=== PATIENT | male | born 1945 | race Caucasian/White ===

== ENCOUNTER 2022-01-09 08:01 | Inpatient (IN) | payer OTHER, MEDICAID ==
[~2022-01-09] VITALS: Ht 170.2 cm; Wt 135.6 kg
--- NOTE | 2022-01-09 | NUR ---
OPENING NOTE PT ADMIT FROM ED. DX S/P EPILEPTICUS. PT AOX0, UNRESPONSIVE. PT IS CHRONIC TRACH WITH T-PIECE ON 5 L OF 02. PT HAS L HAND 24 G WITH IVF INFUSING. PT HAS G TUBE WITH FEEDING CURRENTLY ON HOLD PER MD. PT HAS F/C DRAINING TO GRAVITY WITH 200ML OF DARK VAHID COLOR URINE. PT SKIN INTACT AND COCCYX PAD PLACED FOR PROPHYLACTICALLY. ALL SAFETY MEASURE IN PLACE WILL CONTINUE TO MONITOR
[2022-01-09 08:01] VITALS: BP_SYST 126
--- NOTE | 2022-01-09 08:05 | NUR ---
Patient to ER bed 6 to gown for evaluation. Side rails up. Report given to ELSA BAILEY.
--- NOTE | 2022-01-09 08:06 | NUR ---
Assumed care of pt who was brought from [facility] because of seizure lasting more than 20 minutes. Patient has hx of seizure activity, hyperlipidemia, hypothyroidism, Mxdema crisis. Patient is non responsive and appears to be sleeping. Patient's baseline is nonverbal nonambulatory. Decub ulcer noted over sacrum. Will continue to provide care as ordered.
--- NOTE | 2022-01-09 08:07 | NUR ---
ER Dr. Gonzalez at bedside examining patient.
[2022-01-09] MEDS ORDERED: levETIRAcetam 500 MG in NS 100 ML IV ONE (08:15)
[2022-01-09 08:35] LABS: BASOPHILS # (AUTO) 0.1 K/uL (0.0-0.2); BASOPHILS % (AUTO) 0.8 % (0.0-2.0); EOSINOPHILS # (AUTO) 0.6 K/uL (0.0-0.4); EOSINOPHILS % (AUTO) 6.9 % (0.0-4.0); HEMATOCRIT 29.8 % (36-54); HEMOGLOBIN 9.8 g/dL (14.0-18.0); LYMPHOCYTES # (AUTO) 1.2 K/uL (1.0-5.5); LYMPHOCYTES % (AUTO) 14.2 % (20.5-51.5); MEAN CORPUSCULAR HEMOGLOBIN 33 pg (27-31); MEAN CORPUSCULAR HGB CONC 33 % (32-36); MEAN CORPUSCULAR VOLUME 101 fL (79.0-98.0); MONOCYTES # (AUTO) 0.4 K/uL (0.0-1.0); MONOCYTES % (AUTO) 4.9 % (1.7-9.3); NEUTROPHILS # (AUTO) 6.2 K/uL (1.8-7.7); NEUTROPHILS % (AUTO) 73.2 % (40.0-70.0); PLATELET COUNT (AUTO) 284 K/uL (130-430); RED BLOOD CELL COUNT(AUTO) 2.96 MIL/uL (4.2-6.2); RED CELL DISTRIBUTION WIDTH 18.4 % (9.0-15.0); WHITE BLOOD COUNT (AUTO) 8.5 K/uL (4.8-10.8)
[2022-01-09 08:48] LABS: ANION GAP -1 (5-15); CHLORIDE 101 mmol/L (98-107); CREATININE 0.62 mg/dL (0.55-1.30); GLUCOSE 94 mg/dL (70-99); POTASSIUM 5.6 mmol/L (3.5-5.1); SODIUM SERUM 137 mmol/L (136-145); UREA NITROGEN, BLOOD 46 mg/dL (8-21)
--- NOTE | 2022-01-09 08:48 | NUR ---
Patient transported to radiology via GURNEY, accompanied by RN AND RAD STAFF.
[2022-01-09 08:51] LABS: INR 0.9 (0.80-1.20); PROTHROMBIN TIME 9.3 SECS (9.5-12.5)
--- NOTE | 2022-01-09 08:53 | NUR ---
Returned from radiology, back to [facility].
[2022-01-09 09:03] LABS: ALANINE AMINOTRANSFERASE 31 U/L (12-78); ALBUMIN 2.5 g/dL (3.4-4.8); ASPARTATE AMINOTRANSFERASE 51 U/L (10-37); TOTAL BILIRUBIN 0.2 mg/dL (0.0-1.0)
--- NOTE | 2022-01-09 10:20 | NUR ---
EKG performed at by Dariela BAILEY. Physician given copy of EKG for review.
--- NOTE | 2022-01-09 11:41 | NUR ---
Admit bed requested Patient will be admitted to care of Dr. ACEVEDO. Admitted to ICU unit. Diagnosis STATUS EPILEPTICUS Inpatient (Yes or No) Y Observation (Yes or No) N Orientation concerns or request close to nursing station (Yes or No) N Covid Status N On vent or bipap Y Isolation requirements N Needs a sitter N From Home (Yes or if No enter name of facility) N ([facility]) Requires Dialysis (Yes or No) N Med Rec Completed (Yes of No) Y
[2022-01-09] MEDS ORDERED: KCL 20 mEq in D5NS 1000 mL 1,000 ML IV ONE (11:45)
[2022-01-09 11:46] LABS: BILIRUBIN,URINE NEGATIVE (NEGATIVE); BLOOD, URINE 3+ (NEGATIVE); COLOR,URINE YELLOW (YELLOW); GLUCOSE,URINE NEGATIVE (NEGATIVE); KETONES,URINE NEGATIVE (NEGATIVE); LEUKOCYTE ESTERASE ,URINE 2+ (NEGATIVE); NITRITE, URINE POSITIVE (NEGATIVE); PH,URINE 5.5 (5.0-8.0); PROTEIN URINE 1+ (NEGATIVE); UROBILINOGEN,URINE 0.2 (0.2-1.0)
[2022-01-09] MEDS ORDERED: ARGI1POW13 GT (11:55)
[2022-01-09] MEDS ORDERED: ASCO500L4 GT (11:55)
[2022-01-09] MEDS ORDERED: ACET-2051 GT (11:55)
[2022-01-09] MEDS ORDERED: AMLO5TAB92 GT (11:55)
[2022-01-09 11:59] LABS: CLARITY/URINE HAZY (CLEAR)
[2022-01-09 12:00] LABS: BACTERIA,URINE MODERATE /HPF (None Seen); MUCUS,URINE 1+ /LPF (None Seen); RBC,URINE 20-50 /HPF (0-3)
[2022-01-09] MEDS ORDERED: LEVE100S GT (12:22)
[2022-01-09] MEDS ORDERED: CAT.1 GT (12:22)
[2022-01-09] MEDS ORDERED: BISA10SU61 PR (12:22)
[2022-01-09] MEDS ORDERED: ASPI-524 GT (12:22)
[2022-01-09] MEDS ORDERED: LACT10SO7 GT (12:22)
[2022-01-09] MEDS ORDERED: VALP250S3 GT (12:22)
[2022-01-09] MEDS ORDERED: ATOR40TA68 GT (12:22)
[2022-01-09] MEDS ORDERED: LEVO150C4 GT (12:22)
[2022-01-09] MEDS ORDERED: KETO60CR2 TP (12:22)
[2022-01-09] MEDS ORDERED: MODA100T53 GT (12:22)
[2022-01-09] MEDS ORDERED: IPRA3AMP9 ×2 (12:22)
[2022-01-09] MEDS ORDERED: AMIN30LI2 GT (12:22)
[2022-01-09] MEDS ORDERED: HEPA500015 SQ (12:22)
[2022-01-09] MEDS ORDERED: MULT-74 GT (12:22)
[2022-01-09] MEDS ORDERED: MOM GT (12:22)
[2022-01-09] MEDS ORDERED: LACO200T4 GT (12:22)
[2022-01-09] MEDS ORDERED: LANS30CA53 GT (12:22)
--- NOTE | 2022-01-09 12:23 | NUR ---
Medication reconciliation completed with information provided by FACILITY. Any prior medication reconciliation on file was reviewed and corrected.
[2022-01-09] MEDS ORDERED: ACETAMINOPHEN CHILDREN'S 160 MG/5 ML ORAL.SUSP GT SCH (14:00)
[2022-01-09] MEDS ORDERED: VALPROIC ACID ORAL SYRUP 250 MG/5 ML UDC GT SCH (14:00)
[2022-01-09] MEDS ORDERED: cloNIDine HCL 0.1 MG TABLET GT PRN (14:00)
[2022-01-09] MEDS ORDERED: ACETAMINOPHEN 650 MG/20.3 ML UDC GT PRN ×2 (15:14→15:45)
[2022-01-09] MEDS ORDERED: LevETIRAcetam 500 MG/5 ML UDC ORAL LIQUID GT ONE (15:30)
[2022-01-09] MEDS ORDERED: VALPROIC ACID ORAL SYRUP 250 MG/5 ML UDC GT ONE (15:30)
[2022-01-09] MEDS: HEPARIN SODIUM,PORCINE 5,000 UNITS/ML VIAL SUBCUT SCH (16:06)
[2022-01-09] MEDS: D5NS 1,000 ML IV SCH (16:15)
--- NOTE | 2022-01-09 17:45 | NUR ---
PATIENT MOVED FROM ER [facility] TO HOSPITAL BED . REPOSITIONED FOR COMFORT.
[2022-01-09] MEDS: LORazepam 2 MG/ML VIAL IVP PRN (17:58)
--- NOTE | 2022-01-09 19:21 | NUR ---
Report rec from Yue BAILEY.
--- NOTE | 2022-01-09 19:35 | NUR ---
Pt resting in bed. Pt at beside. VSS. Pt showing no signs of resp distress, unlabored breathing, O2 sat at 100% RA. updated about plan of care. Safety precautions in place
--- NOTE | 2022-01-09 19:50 | NUR ---
Pt in formed on reasoning for HOLD. RT called for suctioning for pt. Charge nurse informed that pt wishes to speak to her.
--- NOTE | 2022-01-09 20:01 | NUR ---
RT at bedside for suctioning.
--- NOTE | 2022-01-09 20:03 | NUR ---
MRSA collected by EMT and sent to lab.
[2022-01-09] MEDS: amLODIPine BESYLATE 5 MG TABLET GT SCH (21:00)
[2022-01-09] MEDS: CEFEPIME 1 GM in D5W 50 ML IV SCH (21:00)
[2022-01-09] MEDS: ATORVASTATIN 20 MG TABLET GT SCH (21:00)
[2022-01-09] MEDS: LevETIRAcetam 500 MG/5 ML UDC ORAL LIQUID GT SCH (21:00)
--- NOTE | 2022-01-09 21:00 | NUR ---
Patient will be admitted to care of Dr. Ballard. Admitted to ICU unit. Will go to room ICU4. Belongings list completed. Complete and up to date summary report printed. SBAR report given to Lizbeth RN at bedside with opportunity for questions.
[2022-01-09] MEDS: VALPROIC ACID ORAL SYRUP 250 MG/5 ML UDC GT SCH (22:00)
[2022-01-09 22:28] VITALS: BP_SYST 121
[2022-01-09] MEDS ORDERED: CEFEPIME 1 GM/VIAL (MAXIPIME) ONE (22:51)
[2022-01-09] MEDS ORDERED: LevETIRAcetam 500 MG/5 ML UDC ORAL LIQUID ONE (22:51)
[2022-01-10] VITALS (26 sets, daily range): BP systolic 95–153
[2022-01-10] MEDS: D5NS 1,000 ML IV SCH ×3 (00:33→18:40)
--- NOTE | 2022-01-10 00:47 | NUR ---
ATIVAN PT GIVEN ATIVAN S/P SZ. WILL CONTINUE TO MONITOR
[2022-01-10] MEDS: IPRATROPIUM/ALBUTEROL SULFATE 3 ML AMPUL.NEB (DUONEB) IH SCH ×4 (01:16→20:41)
[2022-01-10] MEDS: HEPARIN SODIUM,PORCINE 5,000 UNITS/ML VIAL SUBCUT SCH ×2 (02:00→13:54)
--- NOTE | 2022-01-10 04:45 | NUR ---
SEIZURE PT HAS SEIZURE LASTING ABOUT 20 SECOND. PT HEART RATE INCREASE FORM 62 TO 129, BP WAS 105/48, RESP-22, SAT'S 97%. PT RETURNED TO 60 S/P SZ.
[2022-01-10] MEDS: LORazepam 2 MG/ML VIAL IVP PRN ×3 (04:46→16:38)
[2022-01-10] MEDS: VALPROIC ACID ORAL SYRUP 250 MG/5 ML UDC GT SCH ×3 (06:00→22:00)
--- NOTE | 2022-01-10 07:04 | NUR ---
received report from endorsing pullboat engineer RN for continuity of care, patient lying on bed with an IVF of D5NS @ 100 ml/hr. on tube feeding Jevity 1.5 @ 55, on T bar 5 L of oxygen saturating around 100%. Glez catheter in place, zuhair urine in color, draining to gravity, vital signs heart rate 50, respiratory rate 19, oxygen saturation 100, temperature 96.4, blood pressure 117/57. will continue to monitor.
[2022-01-10 07:08] LABS: ANION GAP 1 (5-15); CALCIUM 8.5 mg/dL (8.4-11.0); CHLORIDE 104 mmol/L (98-107); CREATININE 0.55 mg/dL (0.55-1.30); GLUCOSE 89 mg/dL (70-99); POTASSIUM 4.6 mmol/L (3.5-5.1); SODIUM SERUM 138 mmol/L (136-145); UREA NITROGEN, BLOOD 40 mg/dL (8-21)
[2022-01-10 07:49] LABS: BASOPHILS % (AUTO) 0.3 % (0.0-2.0); EOSINOPHILS # (AUTO) 0.1 K/uL (0.0-0.4); HEMATOCRIT 24.5 % (36-54); HEMOGLOBIN 8.1 g/dL (14.0-18.0); LYMPHOCYTES # (AUTO) 0.6 K/uL (1.0-5.5); LYMPHOCYTES % (AUTO) 5.1 % (20.5-51.5); MEAN CORPUSCULAR HEMOGLOBIN 33 pg (27-31); MEAN CORPUSCULAR HGB CONC 33 % (32-36); MEAN CORPUSCULAR VOLUME 100 fL (79.0-98.0); MONOCYTES # (AUTO) 0.4 K/uL (0.0-1.0); MONOCYTES % (AUTO) 3.6 % (1.7-9.3); NEUTROPHILS # (AUTO) 10.1 K/uL (1.8-7.7); PLATELET COUNT (AUTO) 240 K/uL (130-430); RED BLOOD CELL COUNT(AUTO) 2.45 MIL/uL (4.2-6.2); RED CELL DISTRIBUTION WIDTH 18.2 % (9.0-15.0); WHITE BLOOD COUNT (AUTO) 11.2 K/uL (4.8-10.8)
[2022-01-10] MEDS ORDERED: MODAFINIL 100 MG TABLET (PROVIGIL) GT SCH (09:00)
[2022-01-10] MEDS: amLODIPine BESYLATE 5 MG TABLET GT SCH ×2 (09:00→20:44)
[2022-01-10] MEDS ORDERED: BISACODYL 10 MG/SUPPOSITORY RC PRN (09:00)
[2022-01-10] MEDS: MULTIVITS,CA,MINERALS/IRON/FA 1 TABLET GT SCH (09:12)
[2022-01-10] MEDS: LANSOPRAZOLE 30 MG CAPSULE.DR GT SCH (09:12)
[2022-01-10] MEDS: ASPIRIN 81 MG TAB.CHEW GT SCH (09:12)
[2022-01-10] MEDS: MILK OF MAGNESIA 30 ML UDC GT SCH (09:12)
[2022-01-10] MEDS: LevETIRAcetam 500 MG/5 ML UDC ORAL LIQUID GT SCH ×2 (09:14→20:44)
[2022-01-10] MEDS: CEFEPIME 1 GM in D5W 50 ML IV SCH ×2 (09:16→20:44)
[2022-01-10] MEDS: KETOCONAZOLE 2%, 60 GM TOPICAL CREAM. (NIZORAL) TP SCH (11:04)
[2022-01-10] MEDS ORDERED: LORazepam 2 MG/ML VIAL IVP PRN (12:30)
[2022-01-10] MEDS: ACETYLCYSTEINE 20% 4 ML VIAL (RT) INH SCH ×2 (13:23→20:41)
[2022-01-10] MEDS: ATORVASTATIN 20 MG TABLET GT SCH (20:44)
[2022-01-11] VITALS (22 sets, daily range): BP systolic 88–141
[2022-01-11] MEDS: IPRATROPIUM/ALBUTEROL SULFATE 3 ML AMPUL.NEB (DUONEB) IH SCH ×3 (01:46→13:28)
[2022-01-11] MEDS: ACETYLCYSTEINE 20% 4 ML VIAL (RT) INH SCH ×3 (01:46→13:29)
[2022-01-11] MEDS: HEPARIN SODIUM,PORCINE 5,000 UNITS/ML VIAL SUBCUT SCH ×2 (02:16→14:20)
[2022-01-11] MEDS: D5NS 1,000 ML IV SCH ×2 (05:29→15:42)
[2022-01-11] MEDS: VALPROIC ACID ORAL SYRUP 250 MG/5 ML UDC GT SCH ×3 (05:29→22:11)
[2022-01-11 06:39] LABS: BASOPHILS % (AUTO) 0.2 % (0.0-2.0); EOSINOPHILS # (AUTO) 0.3 K/uL (0.0-0.4); EOSINOPHILS % (AUTO) 4.5 % (0.0-4.0); LYMPHOCYTES # (AUTO) 0.9 K/uL (1.0-5.5); LYMPHOCYTES % (AUTO) 12.1 % (20.5-51.5); MEAN CORPUSCULAR HEMOGLOBIN 34 pg (27-31); MEAN CORPUSCULAR HGB CONC 34 % (32-36); MEAN CORPUSCULAR VOLUME 100 fL (79.0-98.0); MONOCYTES # (AUTO) 0.5 K/uL (0.0-1.0); MONOCYTES % (AUTO) 5.8 % (1.7-9.3); NEUTROPHILS # (AUTO) 6.1 K/uL (1.8-7.7); NEUTROPHILS % (AUTO) 77.4 % (40.0-70.0); PLATELET COUNT (AUTO) 233 K/uL (130-430); RED CELL DISTRIBUTION WIDTH 18.3 % (9.0-15.0); WHITE BLOOD COUNT (AUTO) 7.8 K/uL (4.8-10.8)
[2022-01-11 06:46] LABS: ANION GAP 1 (5-15); CALCIUM 8.5 mg/dL (8.4-11.0); CHLORIDE 108 mmol/L (98-107); CREATININE 0.58 mg/dL (0.55-1.30); GLUCOSE 72 mg/dL (70-99); POTASSIUM 4.6 mmol/L (3.5-5.1); SODIUM SERUM 141 mmol/L (136-145); UREA NITROGEN, BLOOD 34 mg/dL (8-21)
--- NOTE | 2022-01-11 07:03 | NUR ---
received report from endorsing marketing director assisted living RN for continuity of care, patient lying on bed with an IVF of D5NS @ 100 . T bar 2 L of oxygen patient saturation 98%, Jevity 1.5 @ 55 ml/hr, no residual, Glez catheter in place, zuhair urine in color draining to gravity.Vital signs heart rate 57, respiratory rate 19, oxygen saturation 98, blood pressure 90/51. fall and safety precaution in place, will continue to monitor. Addendum: 01/12/22 at 0758 by [facility], LEO BAILEY G tube in place
[2022-01-11] MEDS: MULTIVITS,CA,MINERALS/IRON/FA 1 TABLET GT SCH (08:48)
[2022-01-11] MEDS: ASPIRIN 81 MG TAB.CHEW GT SCH (08:49)
[2022-01-11] MEDS: amLODIPine BESYLATE 5 MG TABLET GT SCH ×2 (08:49→20:35)
[2022-01-11] MEDS: LevETIRAcetam 500 MG/5 ML UDC ORAL LIQUID GT SCH ×2 (08:50→20:34)
[2022-01-11] MEDS: LANSOPRAZOLE 30 MG CAPSULE.DR GT SCH (08:52)
[2022-01-11] MEDS: MILK OF MAGNESIA 30 ML UDC GT SCH (08:52)
[2022-01-11] MEDS: KETOCONAZOLE 2%, 60 GM TOPICAL CREAM. (NIZORAL) TP SCH (08:53)
[2022-01-11] MEDS: CEFEPIME 1 GM in D5W 50 ML IV SCH ×2 (08:58→20:37)
--- NOTE | 2022-01-11 10:00 | NUR ---
Patient Sadaf is at bedside, telephonic nurse case manager Mis update patient status.
[2022-01-11] MEDS: LORazepam 2 MG/ML VIAL IVP PRN ×3 (13:12→20:40)
--- NOTE | 2022-01-11 13:12 | NUR ---
ativan pt given Ativan 2 mg s/p sz. will continue to monitor.
--- NOTE | 2022-01-11 14:27 | NUR ---
Dietitian Recommendations * Continue Jevity 1.5 at 55 ml/hr via GT Provides: 1980 kcal/day, 84 gm protein/day, and 1003 ml free water/day Meets: 96% of upper end of estimated caloric needs and 94% of upper end of estimated protein needs * Physician to clarify Free Water Flush order LP, MS, RD Please refer to Nutrition Assessment for details. Addendum: 01/11/22 at [address] Amended: Links added.
--- NOTE | 2022-01-11 15:35 | NUR ---
ATIVAN PT GIVEN aTIVAN 2 MG S/P SZ.WILL CONTINUE TO MONITOR.
[2022-01-11] MEDS: ATORVASTATIN 20 MG TABLET GT SCH (20:34)
[2022-01-12] VITALS (24 sets, daily range): BP systolic 91–156
[2022-01-12] MEDS: ACETYLCYSTEINE 20% 4 ML VIAL (RT) INH SCH ×5 (00:29→19:54)
[2022-01-12] MEDS: IPRATROPIUM/ALBUTEROL SULFATE 3 ML AMPUL.NEB (DUONEB) IH SCH ×5 (00:29→19:38)
[2022-01-12] MEDS: LORazepam 2 MG/ML VIAL IVP PRN (01:23)
[2022-01-12] MEDS: HEPARIN SODIUM,PORCINE 5,000 UNITS/ML VIAL SUBCUT SCH ×2 (01:25→13:59)
[2022-01-12] MEDS: D5NS 1,000 ML IV SCH ×3 (04:28→23:28)
[2022-01-12] MEDS: VALPROIC ACID ORAL SYRUP 250 MG/5 ML UDC GT SCH ×3 (05:32→23:27)
[2022-01-12 07:19] LABS: BASOPHILS % (AUTO) 0.3 % (0.0-2.0); EOSINOPHILS # (AUTO) 0.4 K/uL (0.0-0.4); EOSINOPHILS % (AUTO) 7.2 % (0.0-4.0); HEMATOCRIT 23.1 % (36-54); HEMOGLOBIN 7.7 g/dL (14.0-18.0); LYMPHOCYTES # (AUTO) 0.7 K/uL (1.0-5.5); LYMPHOCYTES % (AUTO) 11.5 % (20.5-51.5); MEAN CORPUSCULAR HEMOGLOBIN 34 pg (27-31); MEAN CORPUSCULAR HGB CONC 33 % (32-36); MEAN CORPUSCULAR VOLUME 101 fL (79.0-98.0); MONOCYTES # (AUTO) 0.3 K/uL (0.0-1.0); MONOCYTES % (AUTO) 4.8 % (1.7-9.3); NEUTROPHILS # (AUTO) 4.8 K/uL (1.8-7.7); NEUTROPHILS % (AUTO) 76.2 % (40.0-70.0); PLATELET COUNT (AUTO) 224 K/uL (130-430); RED BLOOD CELL COUNT(AUTO) 2.29 MIL/uL (4.2-6.2); RED CELL DISTRIBUTION WIDTH 18.9 % (9.0-15.0); WHITE BLOOD COUNT (AUTO) 6.3 K/uL (4.8-10.8)
--- NOTE | 2022-01-12 07:20 | NUR ---
received report from endorsing regional business manager RN for continuity of care. patient lying on bed with an IVF of D5 NS @ 100, patient on T bar 5 L of oxygen, G-tube in place Jevity 1.5 @ 55, Glez catheter in place yellow urine in color draining to gravity, no signs of acute distress noted at this time.patient blood [id number]/62, heart rate 77, oxygen saturation 99 , respiratory rate 27, temperature 97.2. fall and safety precaution in place,will continue to monitor.
[2022-01-12 08:01] LABS: ANION GAP 0 (5-15); CALCIUM 8.2 mg/dL (8.4-11.0); CHLORIDE 110 mmol/L (98-107); CREATININE 0.62 mg/dL (0.55-1.30); GLUCOSE 79 mg/dL (70-99); POTASSIUM 4.8 mmol/L (3.5-5.1); SODIUM SERUM 144 mmol/L (136-145); UREA NITROGEN, BLOOD 30 mg/dL (8-21)
[2022-01-12 08:46] LABS: TOTAL IRON BIND. CAPACITY 222 ug/dL (250-450)
[2022-01-12] MEDS: amLODIPine BESYLATE 5 MG TABLET GT SCH ×2 (09:00→21:19)
[2022-01-12] MEDS: MULTIVITS,CA,MINERALS/IRON/FA 1 TABLET GT SCH (09:15)
[2022-01-12] MEDS: LevETIRAcetam 500 MG/5 ML UDC ORAL LIQUID GT SCH ×2 (09:15→21:18)
[2022-01-12] MEDS: LANSOPRAZOLE 30 MG CAPSULE.DR GT SCH (09:15)
[2022-01-12] MEDS: MILK OF MAGNESIA 30 ML UDC GT SCH (09:15)
[2022-01-12] MEDS: ASPIRIN 81 MG TAB.CHEW GT SCH (09:15)
[2022-01-12] MEDS: CEFEPIME 1 GM in D5W 50 ML IV SCH ×2 (09:26→21:19)
[2022-01-12] MEDS: KETOCONAZOLE 2%, 60 GM TOPICAL CREAM. (NIZORAL) TP SCH (09:27)
[2022-01-12] MEDS: IPRATROPIUM/ALBUTEROL SULFATE 3 ML AMPUL.NEB (DUONEB) IH PRN ×2 (16:55→23:35)
[2022-01-12] MEDS ORDERED: LevETIRAcetam 500 MG/5 ML UDC ORAL LIQUID ONE (20:58)
[2022-01-12] MEDS: ATORVASTATIN 20 MG TABLET GT SCH (21:19)
[2022-01-13] VITALS (16 sets, daily range): BP systolic 115–164
[2022-01-13] MEDS: HEPARIN SODIUM,PORCINE 5,000 UNITS/ML VIAL SUBCUT SCH ×2 (01:07→15:16)
[2022-01-13] MEDS: IPRATROPIUM/ALBUTEROL SULFATE 3 ML AMPUL.NEB (DUONEB) IH PRN (01:32)
[2022-01-13] MEDS: IPRATROPIUM/ALBUTEROL SULFATE 3 ML AMPUL.NEB (DUONEB) IH SCH ×4 (01:58→19:44)
[2022-01-13] MEDS: ACETYLCYSTEINE 20% 4 ML VIAL (RT) INH SCH ×4 (02:02→19:53)
[2022-01-13] MEDS: VALPROIC ACID ORAL SYRUP 250 MG/5 ML UDC GT SCH ×3 (05:19→21:36)
[2022-01-13 08:06] LABS: FOLATE (FOLIC ACID) 12.8 ng/mL (>3.0)
[2022-01-13 08:08] LABS: ANION GAP 2 (5-15); CALCIUM 8.2 mg/dL (8.4-11.0); CHLORIDE 110 mmol/L (98-107); CREATININE 0.62 mg/dL (0.55-1.30); GLUCOSE 150 mg/dL (70-99); POTASSIUM 4.7 mmol/L (3.5-5.1); SODIUM SERUM 143 mmol/L (136-145); UREA NITROGEN, BLOOD 26 mg/dL (8-21)
[2022-01-13 08:55] LABS: BASOPHILS % (AUTO) 0.2 % (0.0-2.0); EOSINOPHILS # (AUTO) 0.4 K/uL (0.0-0.4); EOSINOPHILS % (AUTO) 7.4 % (0.0-4.0); HEMATOCRIT 23.2 % (36-54); HEMOGLOBIN 7.6 g/dL (14.0-18.0); LYMPHOCYTES # (AUTO) 0.6 K/uL (1.0-5.5); LYMPHOCYTES % (AUTO) 11.5 % (20.5-51.5); MEAN CORPUSCULAR HEMOGLOBIN 33 pg (27-31); MEAN CORPUSCULAR HGB CONC 33 % (32-36); MEAN CORPUSCULAR VOLUME 102 fL (79.0-98.0); MONOCYTES # (AUTO) 0.3 K/uL (0.0-1.0); MONOCYTES % (AUTO) 5.7 % (1.7-9.3); NEUTROPHILS # (AUTO) 4.1 K/uL (1.8-7.7); NEUTROPHILS % (AUTO) 75.2 % (40.0-70.0); PLATELET COUNT (AUTO) 211 K/uL (130-430); RED BLOOD CELL COUNT(AUTO) 2.28 MIL/uL (4.2-6.2); RED CELL DISTRIBUTION WIDTH 19.5 % (9.0-15.0); WHITE BLOOD COUNT (AUTO) 5.4 K/uL (4.8-10.8)
[2022-01-13] MEDS: KETOCONAZOLE 2%, 60 GM TOPICAL CREAM. (NIZORAL) TP SCH (09:00)
[2022-01-13] MEDS: CEFEPIME 1 GM in D5W 50 ML IV SCH ×2 (09:20→20:40)
[2022-01-13] MEDS: MULTIVITS,CA,MINERALS/IRON/FA 1 TABLET GT SCH (09:21)
[2022-01-13] MEDS: MILK OF MAGNESIA 30 ML UDC GT SCH (09:21)
[2022-01-13] MEDS: LANSOPRAZOLE 30 MG CAPSULE.DR GT SCH (09:21)
[2022-01-13] MEDS: amLODIPine BESYLATE 5 MG TABLET GT SCH ×2 (09:23→20:42)
[2022-01-13] MEDS: ASPIRIN 81 MG TAB.CHEW GT SCH (09:23)
[2022-01-13] MEDS: D5NS 1,000 ML IV SCH ×2 (10:41→20:42)
[2022-01-13] MEDS: LevETIRAcetam 500 MG/5 ML UDC ORAL LIQUID GT SCH ×2 (10:42→20:41)
--- NOTE | 2022-01-13 11:45 | NUR ---
RT NOTES Change O2 to 40% 10L cool aerosol due to inconsistent sat. Improvement noted.
[2022-01-13] MEDS: LORazepam 2 MG/ML VIAL IVP PRN ×2 (16:53→22:39)
[2022-01-13] MEDS: ATORVASTATIN 20 MG TABLET GT SCH (20:41)
[2022-01-14] VITALS (23 sets, daily range): BP systolic 121–178
[2022-01-14] MEDS: HEPARIN SODIUM,PORCINE 5,000 UNITS/ML VIAL SUBCUT SCH ×2 (01:42→14:42)
[2022-01-14] MEDS: IPRATROPIUM/ALBUTEROL SULFATE 3 ML AMPUL.NEB (DUONEB) IH SCH ×4 (02:06→20:48)
[2022-01-14] MEDS: ACETYLCYSTEINE 20% 4 ML VIAL (RT) INH SCH ×4 (02:17→20:48)
[2022-01-14] MEDS: VALPROIC ACID ORAL SYRUP 250 MG/5 ML UDC GT SCH ×3 (06:00→20:45)
--- NOTE | 2022-01-14 07:22 | NUR ---
RT NOTES Titrated FIO2 TO 0.35, RN made aware.
[2022-01-14] MEDS: MULTIVITS,CA,MINERALS/IRON/FA 1 TABLET GT SCH (08:35)
[2022-01-14] MEDS: ASPIRIN 81 MG TAB.CHEW GT SCH (08:35)
[2022-01-14] MEDS: MILK OF MAGNESIA 30 ML UDC GT SCH (08:35)
[2022-01-14] MEDS: amLODIPine BESYLATE 5 MG TABLET GT SCH ×2 (08:36→20:45)
[2022-01-14] MEDS: LANSOPRAZOLE 30 MG CAPSULE.DR GT SCH (08:36)
[2022-01-14 08:38] LABS: BASOPHILS % (AUTO) 0.3 % (0.0-2.0); EOSINOPHILS # (AUTO) 0.4 K/uL (0.0-0.4); EOSINOPHILS % (AUTO) 11.5 % (0.0-4.0); HEMATOCRIT 24.3 % (36-54); LYMPHOCYTES # (AUTO) 0.9 K/uL (1.0-5.5); LYMPHOCYTES % (AUTO) 23.8 % (20.5-51.5); MEAN CORPUSCULAR HEMOGLOBIN 33 pg (27-31); MEAN CORPUSCULAR HGB CONC 33 % (32-36); MEAN CORPUSCULAR VOLUME 101 fL (79.0-98.0); MONOCYTES # (AUTO) 0.3 K/uL (0.0-1.0); MONOCYTES % (AUTO) 7.3 % (1.7-9.3); NEUTROPHILS # (AUTO) 2.1 K/uL (1.8-7.7); NEUTROPHILS % (AUTO) 57.1 % (40.0-70.0); PLATELET COUNT (AUTO) 197 K/uL (130-430); RED CELL DISTRIBUTION WIDTH 19.2 % (9.0-15.0)
[2022-01-14] MEDS: LevETIRAcetam 500 MG/5 ML UDC ORAL LIQUID GT SCH ×2 (08:38→20:44)
[2022-01-14] MEDS: KETOCONAZOLE 2%, 60 GM TOPICAL CREAM. (NIZORAL) TP SCH (08:38)
[2022-01-14] MEDS: CEFEPIME 1 GM in D5W 50 ML IV SCH ×2 (08:39→20:45)
[2022-01-14 09:08] LABS: ANION GAP 1 (5-15); CALCIUM 8.2 mg/dL (8.4-11.0); CHLORIDE 110 mmol/L (98-107); CREATININE 0.62 mg/dL (0.55-1.30); GLUCOSE 119 mg/dL (70-99); POTASSIUM 4.7 mmol/L (3.5-5.1); SODIUM SERUM 143 mmol/L (136-145); UREA NITROGEN, BLOOD 23 mg/dL (8-21)
--- NOTE | 2022-01-14 09:33 | NUR ---
RT NOTES Pt cont. to tolerate 35% FIO2, current sat. 94%.
[2022-01-14 10:36] LABS: WHITE BLOOD COUNT (AUTO) 3.6 K/uL (4.8-10.8)
--- NOTE | 2022-01-14 11:18 | NUR ---
RT NOTES Tracheal sxn done.
[2022-01-14] MEDS ORDERED: LOSARTAN POTASSIUM 50 MG TABLET (COZAAR) GT ONE (11:45)
[2022-01-14] MEDS ORDERED: LOSARTAN POTASSIUM 50 MG TABLET (COZAAR) PO ONE (11:45)
--- NOTE | 2022-01-14 15:05 | NUR ---
Nutrition F/U RD reviewed pt's current EMR including diet Hx, physician notes, nursing notes, pertinent labs/meds/procedures, care trends, and care activity. Short note d/t high workload. Current Diet Order/Nutrition Support: Jevity 1.5 at 55 ml/hr, Free Water Flush: Y via GT x4 days Subjective Info: RD rounded to ICU and witnessed TF infusing as per physician order -- 1535 ml infused (2303 kcal). Covering RN (pt's primary RN was on lunch break) reported pt has been tolerating TF well. RD re-emphasized importance of clarifying Free Water Flush order w/ attending. Per EMR review, pt appears to be tolerating TF well at current rate; LBM x1 /; no skin break down noted; wt stable. Current TF prescription continues adequate/appropriate. Estimated Energy Expenditure (kcals/day) 1688-7811 (30-35 kcal/kg Adj IBW d/t chronic vent, critical illness) Estimated Protein Required (g/day) 71-89 (1.2-1.5 gm/kg Adj IBW d/t FIDEL, chronic vent, critical illness) Estimated Fluid Required (l/day) Per physician d/t FIDEL Problem/Etiology/Signs/Symptoms Altered nutrition-related labs R/T renal dysfunction AEB abnormal BUN lab value. *Renal labs seemingly improving Expected Outcomes/Goals - Monitor tolerance to EN support w/ goal of pt meeting >80% of estimated nutritional needs, labs trending WNL, normal GI function, and skin integrity/wt maintenance Dietitian Recommendations * Continue Jevity 1.5 at 55 ml/hr via GT Provides: 1980 kcal/day, 84 gm protein/day, and 1003 ml free water/day Meets: 96% of upper end of estimated caloric needs and 94% of upper end of estimated protein needs * Physician to clarify Free Water Flush order Follow Up High Risk: F/U in 2-3 days
--- NOTE | 2022-01-14 15:10 | NUR ---
Dietitian Recommendations * Continue Jevity 1.5 at 55 ml/hr via GT Provides: 1980 kcal/day, 84 gm protein/day, and 1003 ml free water/day Meets: 96% of upper end of estimated caloric needs and 94% of upper end of estimated protein needs * Physician to clarify Free Water Flush order LP, MS, RD Please refer to Nutrition F/U for details.
--- NOTE | 2022-01-14 15:36 | NUR ---
RT NOTES FIO2 TO 0.40 due to low sat, 91% despite sxn. Improved to 93%
[2022-01-14] MEDS: D5NS 1,000 ML IV SCH ×2 (15:50→20:45)
[2022-01-14] MEDS: LOSARTAN POTASSIUM 50 MG TABLET (COZAAR) GT SCH (20:44)
[2022-01-14] MEDS: ATORVASTATIN 20 MG TABLET GT SCH (20:44)
[2022-01-14] MEDS ORDERED: LOSARTAN POTASSIUM 50 MG TABLET (COZAAR) PO SCH (21:00)
[2022-01-15] VITALS (22 sets, daily range): BP systolic 126–171
[2022-01-15] MEDS: HEPARIN SODIUM,PORCINE 5,000 UNITS/ML VIAL SUBCUT SCH ×2 (02:31→15:08)
[2022-01-15] MEDS: IPRATROPIUM/ALBUTEROL SULFATE 3 ML AMPUL.NEB (DUONEB) IH SCH ×4 (03:56→19:37)
[2022-01-15] MEDS: ACETYLCYSTEINE 20% 4 ML VIAL (RT) INH SCH ×4 (03:56→19:37)
[2022-01-15] MEDS: VALPROIC ACID ORAL SYRUP 250 MG/5 ML UDC GT SCH ×3 (06:16→21:00)
[2022-01-15 06:36] LABS: EOSINOPHILS # (AUTO) 0.2 K/uL (0.0-0.4); EOSINOPHILS % (AUTO) 5.8 % (0.0-4.0); HEMATOCRIT 22.3 % (36-54); HEMOGLOBIN 7.3 g/dL (14.0-18.0); LYMPHOCYTES # (AUTO) 0.3 K/uL (1.0-5.5); LYMPHOCYTES % (AUTO) 8.7 % (20.5-51.5); MEAN CORPUSCULAR HEMOGLOBIN 33 pg (27-31); MEAN CORPUSCULAR HGB CONC 33 % (32-36); MEAN CORPUSCULAR VOLUME 101 fL (79.0-98.0); MONOCYTES # (AUTO) 1.6 K/uL (0.0-1.0); NEUTROPHILS # (AUTO) 1.3 K/uL (1.8-7.7); NEUTROPHILS % (AUTO) 38.5 % (40.0-70.0); PLATELET COUNT (AUTO) 177 K/uL (130-430); RED CELL DISTRIBUTION WIDTH 19.4 % (9.0-15.0); WHITE BLOOD COUNT (AUTO) 3.4 K/uL (4.8-10.8)
[2022-01-15] MEDS: MILK OF MAGNESIA 30 ML UDC GT SCH (08:39)
[2022-01-15] MEDS: ASPIRIN 81 MG TAB.CHEW GT SCH (08:40)
[2022-01-15] MEDS: LOSARTAN POTASSIUM 50 MG TABLET (COZAAR) GT SCH ×2 (08:40→20:57)
[2022-01-15] MEDS: LANSOPRAZOLE 30 MG CAPSULE.DR GT SCH (08:40)
[2022-01-15] MEDS: CEFEPIME 1 GM in D5W 50 ML IV SCH ×2 (08:40→20:57)
[2022-01-15] MEDS: MULTIVITS,CA,MINERALS/IRON/FA 1 TABLET GT SCH (08:40)
[2022-01-15] MEDS: amLODIPine BESYLATE 5 MG TABLET GT SCH ×2 (08:40→20:57)
[2022-01-15] MEDS: KETOCONAZOLE 2%, 60 GM TOPICAL CREAM. (NIZORAL) TP SCH (08:41)
[2022-01-15] MEDS: LevETIRAcetam 500 MG/5 ML UDC ORAL LIQUID GT SCH ×2 (08:41→20:57)
[2022-01-15 09:07] LABS: ALANINE AMINOTRANSFERASE 12 U/L (12-78); ALBUMIN 1.2 g/dL (3.4-4.8); ANION GAP 5 (5-15); ASPARTATE AMINOTRANSFERASE 20 U/L (10-37); CALCIUM 8.2 mg/dL (8.4-11.0); CHLORIDE 111 mmol/L (98-107); CREATININE 0.56 mg/dL (0.55-1.30); GLUCOSE 80 mg/dL (70-99); POTASSIUM 5.1 mmol/L (3.5-5.1); SODIUM SERUM 143 mmol/L (136-145); TOTAL BILIRUBIN 0.1 mg/dL (0.0-1.0); UREA NITROGEN, BLOOD 21 mg/dL (8-21)
[2022-01-15] MEDS ORDERED: FUROSEMIDE 20 MG/2 ML VIAL IVP ONE (11:45)
--- NOTE | 2022-01-15 16:01 | NUR ---
1540 trach care done, pt suctioned. small thick yellow secretions. nebulizer changed. Addendum: 01/15/22 at 1602 by Chelsey Rodarte RT Amended: Links added.
[2022-01-15] MEDS: ATORVASTATIN 20 MG TABLET GT SCH (20:57)
[2022-01-16] VITALS (24 sets, daily range): BP systolic 107–174
[2022-01-16] MEDS: ACETYLCYSTEINE 20% 4 ML VIAL (RT) INH SCH ×4 (01:53→19:32)
[2022-01-16] MEDS: IPRATROPIUM/ALBUTEROL SULFATE 3 ML AMPUL.NEB (DUONEB) IH SCH ×4 (01:53→19:31)
[2022-01-16] MEDS: HEPARIN SODIUM,PORCINE 5,000 UNITS/ML VIAL SUBCUT SCH ×2 (02:47→13:28)
[2022-01-16] MEDS: VALPROIC ACID ORAL SYRUP 250 MG/5 ML UDC GT SCH ×3 (05:29→21:13)
[2022-01-16 06:42] LABS: HEMATOCRIT 24.7 % (36-54); HEMOGLOBIN 8.1 g/dL (14.0-18.0); MEAN CORPUSCULAR HEMOGLOBIN 33 pg (27-31); MEAN CORPUSCULAR HGB CONC 33 % (32-36); MEAN CORPUSCULAR VOLUME 101 fL (79.0-98.0); PLATELET COUNT (AUTO) 184 K/uL (130-430); RED BLOOD CELL COUNT(AUTO) 2.45 MIL/uL (4.2-6.2); RED CELL DISTRIBUTION WIDTH 19.5 % (9.0-15.0)
[2022-01-16 06:54] LABS: ALANINE AMINOTRANSFERASE 13 U/L (12-78); ALBUMIN 1.3 g/dL (3.4-4.8); ANION GAP 3 (5-15); ASPARTATE AMINOTRANSFERASE 20 U/L (10-37); CALCIUM 8.8 mg/dL (8.4-11.0); CHLORIDE 108 mmol/L (98-107); CREATININE 0.61 mg/dL (0.55-1.30); GLUCOSE 72 mg/dL (70-99); POTASSIUM 5.2 mmol/L (3.5-5.1); SODIUM SERUM 141 mmol/L (136-145); TOTAL BILIRUBIN 0.1 mg/dL (0.0-1.0); UREA NITROGEN, BLOOD 23 mg/dL (8-21)
[2022-01-16] MEDS: LANSOPRAZOLE 30 MG CAPSULE.DR GT SCH (08:45)
[2022-01-16] MEDS: ASPIRIN 81 MG TAB.CHEW GT SCH (08:45)
[2022-01-16] MEDS: FUROSEMIDE 20 MG/2 ML VIAL IVP SCH (08:45)
[2022-01-16] MEDS: MILK OF MAGNESIA 30 ML UDC GT SCH (08:45)
[2022-01-16] MEDS: MULTIVITS,CA,MINERALS/IRON/FA 1 TABLET GT SCH (08:46)
[2022-01-16] MEDS: amLODIPine BESYLATE 5 MG TABLET GT SCH ×2 (08:46→20:15)
[2022-01-16] MEDS: LevETIRAcetam 500 MG/5 ML UDC ORAL LIQUID GT SCH ×2 (08:46→20:15)
[2022-01-16] MEDS: CEFEPIME 1 GM in D5W 50 ML IV SCH (08:46)
[2022-01-16] MEDS: LOSARTAN POTASSIUM 50 MG TABLET (COZAAR) GT SCH ×2 (08:47→20:14)
[2022-01-16] MEDS: KETOCONAZOLE 2%, 60 GM TOPICAL CREAM. (NIZORAL) TP SCH (08:47)
--- NOTE | 2022-01-16 11:51 | NUR ---
Discharge Planning: DCP faxed pt referral to [facility] [phone], [facility] [phone], [place] [facility] [phone] DCP to follow up Addendum: 01/16/22 at 1454 by Tamy Morris DP [facility] [phone]-no beds per Crystal, [facility] [phone]-[facility], [place] [facility] [phone]-accept request rapid covid. HOAP faxed to [facility] [phone]. DCP to follow up Addendum: 01/16/22 at 1511 by Tamy Morris DP [facility] [phone]-accept request rapid covid. DCP followed up with [facility] [phone] [phone] per Ab DCP needs to call Kerry Jack#[phone] F#[phone]. Kerry request referral be sent to #[phone]. DCP to follow up.
--- NOTE | 2022-01-16 13:24 | NUR ---
1325 titrated fio2 to 35% 8l. sat 97%. will cont to monitor.rn aware. Addendum: 01/16/22 at 1325 by Chelsey Rodarte RT Amended: Links added.
[2022-01-16] MEDS: PIPERACILLIN/TAZO 4.5GM/DEX-IS 100 ML IV SCH ×2 (13:27→21:14)
[2022-01-16 13:57] LABS: BAND % (MANUAL) 11 % (0-6); BASOPHILS % (MANUAL) 0 % (0-2); EOSINOPHILS % (MANUAL) 7 % (0-7); LYMPHOCYTES % (MANUAL) 35 % (20-46); MONOCYTES % (MANUAL) 12 % (0-11)
--- NOTE | 2022-01-16 14:00 | NUR ---
SPOKE WITH PATIENTS ON THE PHONE, SHE STATED THAT SHE LEFT A VOICEMAIL WITH SENIOR LEAD PROJECT MANAGER TO DISCUSS ORGANIZING THE DISCHARGE FACILITY FOR THE PATIENT. UPDATED ON PATIENT STATUS AND STATED THAT WILL CONTACT THE SENIOR LEAD PROJECT MANAGER AND FOLLOW UP SO THAT THEY WILL CALL TO DISCUSS PLAN. VOICED UNDERSTANDING.
--- NOTE | 2022-01-16 14:14 | NUR ---
IN [employer]OLD [employer]ATER ACSW Dawna returned a Voicemail from patient's Samina Aguilar . She inquired into status of transfer to facility closer to [facility]. ACSW assured her Case Management was continuing efforts to secure placement, and provided her updated on facilities contacted. Samina requested packet to be sent to the following; - [facility] ([facility]) ACSW relayed information to Case Management. ACSW will continue to be available as needed.
--- NOTE | 2022-01-16 16:10 | NUR ---
1510 SUCTIONED MODERATE THIN YELLOW SECRETIONS. SAT 97%. COOL AEROSOL WATER BOTTLE CHANGED. Addendum: 01/16/22 at 1612 by Chelsey Rodarte RT Amended: Links added.
--- NOTE | 2022-01-16 17:38 | NUR ---
1720 trach care done, pt tolerated well. Addendum: 01/16/22 at 1738 by Chelsey Rodarte RT Amended: Links added.
--- NOTE | 2022-01-16 19:05 | NUR ---
OPENING NOTES: RECEIVED BEDSIDE REPORT FROM REGINALD. PATIENT IS AWAKE BUT DOES NOT TRACK OR FOLLOW COMMANDS. PATIENT HAS A T-BAR TRACH AT 8 L, 35%. PEG WITH JEVITY RUNNING AT 55 ML/HR. PATIENT HAS HAS A LEFT HAND 20G AND LEFT UPPER ARM 20G. PATIENT HAS REDNESS ON SACRAL WITH FOAM DRESSING, WOUNDS AND BRUISING ON ABDOMEN. BED IS AT THE LOWEST LEVEL, BRAKES ARE LOCKED, SUCTION IS WORKING, 3 SIDE RAILS UP, AND CALL LIGHT WITHIN REACH.
[2022-01-16] MEDS: ATORVASTATIN 20 MG TABLET GT SCH (20:14)
[2022-01-17] VITALS (21 sets, daily range): BP systolic 103–153
[2022-01-17] MEDS: IPRATROPIUM/ALBUTEROL SULFATE 3 ML AMPUL.NEB (DUONEB) IH SCH ×4 (00:01→18:53)
[2022-01-17] MEDS: ACETYLCYSTEINE 20% 4 ML VIAL (RT) INH SCH ×4 (00:01→18:53)
[2022-01-17] MEDS: HEPARIN SODIUM,PORCINE 5,000 UNITS/ML VIAL SUBCUT SCH ×2 (01:24→14:19)
[2022-01-17] MEDS: VALPROIC ACID ORAL SYRUP 250 MG/5 ML UDC GT SCH ×3 (05:23→21:56)
[2022-01-17] MEDS: PIPERACILLIN/TAZO 4.5GM/DEX-IS 100 ML IV SCH ×3 (05:23→22:00)
--- NOTE | 2022-01-17 06:18 | NUR ---
CONSULTATION PAGED/CALLED Reason for Consultation: CLOGGED GT Person Who was Notified: MURPHY Consulting Physician: DR. SHULTZ Transcription Specialty: GI Ordering Physician: DR. ACEVEDO
[2022-01-17 07:03] LABS: BASOPHILS % (AUTO) 0.3 % (0.0-2.0); EOSINOPHILS # (AUTO) 0.3 K/uL (0.0-0.4); EOSINOPHILS % (AUTO) 10.4 % (0.0-4.0); HEMOGLOBIN 8.2 g/dL (14.0-18.0); LYMPHOCYTES # (AUTO) 0.6 K/uL (1.0-5.5); LYMPHOCYTES % (AUTO) 19.1 % (20.5-51.5); MEAN CORPUSCULAR HEMOGLOBIN 33 pg (27-31); MEAN CORPUSCULAR HGB CONC 33 % (32-36); MEAN CORPUSCULAR VOLUME 100 fL (79.0-98.0); MONOCYTES # (AUTO) 0.3 K/uL (0.0-1.0); MONOCYTES % (AUTO) 8.8 % (1.7-9.3); NEUTROPHILS % (AUTO) 61.4 % (40.0-70.0); PLATELET COUNT (AUTO) 182 K/uL (130-430); RED BLOOD CELL COUNT(AUTO) 2.49 MIL/uL (4.2-6.2); RED CELL DISTRIBUTION WIDTH 19.5 % (9.0-15.0); WHITE BLOOD COUNT (AUTO) 3.3 K/uL (4.8-10.8)
[2022-01-17 08:15] LABS: ALANINE AMINOTRANSFERASE 15 U/L (12-78); ALBUMIN 1.4 g/dL (3.4-4.8); ANION GAP 6 (5-15); ASPARTATE AMINOTRANSFERASE 25 U/L (10-37); CALCIUM 8.6 mg/dL (8.4-11.0); CHLORIDE 105 mmol/L (98-107); CREATININE 0.68 mg/dL (0.55-1.30); GLUCOSE 87 mg/dL (70-99); POTASSIUM 5.3 mmol/L (3.5-5.1); SODIUM SERUM 141 mmol/L (136-145); TOTAL BILIRUBIN 0.1 mg/dL (0.0-1.0); UREA NITROGEN, BLOOD 26 mg/dL (8-21)
[2022-01-17] MEDS: ASPIRIN 81 MG TAB.CHEW GT SCH (09:08)
[2022-01-17] MEDS: MILK OF MAGNESIA 30 ML UDC GT SCH (09:08)
[2022-01-17] MEDS: LANSOPRAZOLE 30 MG CAPSULE.DR GT SCH (09:08)
[2022-01-17] MEDS: amLODIPine BESYLATE 5 MG TABLET GT SCH ×2 (09:09→21:55)
[2022-01-17] MEDS: LOSARTAN POTASSIUM 50 MG TABLET (COZAAR) GT SCH ×2 (09:09→21:55)
[2022-01-17] MEDS: MULTIVITS,CA,MINERALS/IRON/FA 1 TABLET GT SCH (09:09)
[2022-01-17] MEDS: LevETIRAcetam 500 MG/5 ML UDC ORAL LIQUID GT SCH ×2 (09:10→21:00)
[2022-01-17] MEDS: KETOCONAZOLE 2%, 60 GM TOPICAL CREAM. (NIZORAL) TP SCH (09:10)
[2022-01-17] MEDS: FUROSEMIDE 20 MG/2 ML VIAL IVP SCH (09:10)
--- NOTE | 2022-01-17 09:25 | NUR ---
RT NOTES Sputum collected, endorsed to RN
--- NOTE | 2022-01-17 10:00 | NUR ---
PATIENT K+ IS 5.3, NOTIFIED DR ACEVEDO, ORDERED FRESH WATER FLUSHES TO PEG OF 150 Q4H.
--- NOTE | 2022-01-17 18:15 | NUR ---
RT NOTES TRANSFERRED PT TO TELE. PLACED ON ETANK VIA TBAR DURING TRANSFER. COOL AEROSOL PLACED PST TRANSFER AT 35% FIO2. NO SOB NOTED. Addendum: 01/17/22 at 1856 by Lasha Ji RT Amended: Links added.
--- NOTE | 2022-01-17 18:30 | NUR ---
transferred patient to telemetry room 105B and gave report to nurse Coelho at bedside, RT assisted in transferring patient, transferred with portable monitor, at bedside during transfer, stable at time of transfer, endorsed continuation of care.
--- NOTE | 2022-01-17 18:30 | NUR ---
OPEN NOTE/TRANSFER ICU Received patient from ICU via hospital bed. Patient admitted with diagnosis of Status Epilepticus. Patient is awake, with eyes open but non-verbal. Patient's at bedside and she was oriented to hospital room, call light, toileting, pain management and safety-teach back done. Received report from Eugene BAILEY regarding patient's condition. Vital Signs taken and patient on GTUBE Jevity running at 55ml/hr with water flushes q4 hours of 150. Patient on TBAR at 5Lpm stating at 96%. Glez catheter patent and draining to gravity. Call light within reach. Bed locked and in lowest position. Will endorse to material handler 1st shift nurse.
[2022-01-17] MEDS: ATORVASTATIN 20 MG TABLET GT SCH (21:54)
[2022-01-18 00:35] VITALS: BP_SYST 140
[2022-01-18] MEDS: ACETYLCYSTEINE 20% 4 ML VIAL (RT) INH SCH ×3 (02:13→19:45)
[2022-01-18] MEDS: IPRATROPIUM/ALBUTEROL SULFATE 3 ML AMPUL.NEB (DUONEB) IH SCH ×4 (02:13→19:45)
[2022-01-18] MEDS: HEPARIN SODIUM,PORCINE 5,000 UNITS/ML VIAL SUBCUT SCH ×2 (04:49→15:15)
[2022-01-18] MEDS: VALPROIC ACID ORAL SYRUP 250 MG/5 ML UDC GT SCH ×3 (05:36→21:47)
[2022-01-18] MEDS: ASPIRIN 81 MG TAB.CHEW GT SCH (09:00)
[2022-01-18] MEDS: MULTIVITS,CA,MINERALS/IRON/FA 1 TABLET GT SCH (09:00)
[2022-01-18] MEDS: MILK OF MAGNESIA 30 ML UDC GT SCH (09:00)
[2022-01-18] MEDS: LevETIRAcetam 500 MG/5 ML UDC ORAL LIQUID GT SCH ×2 (09:00→21:48)
[2022-01-18] MEDS: FUROSEMIDE 20 MG/2 ML VIAL IVP SCH (09:00)
[2022-01-18] MEDS: amLODIPine BESYLATE 5 MG TABLET GT SCH ×2 (09:00→21:51)
[2022-01-18] MEDS: LANSOPRAZOLE 30 MG CAPSULE.DR GT SCH (09:00)
[2022-01-18] MEDS: LOSARTAN POTASSIUM 50 MG TABLET (COZAAR) GT SCH ×2 (09:00→21:52)
[2022-01-18] MEDS: KETOCONAZOLE 2%, 60 GM TOPICAL CREAM. (NIZORAL) TP SCH (09:00)
[2022-01-18 10:51] LABS: ALANINE AMINOTRANSFERASE 15 U/L (12-78); ALBUMIN 1.5 g/dL (3.4-4.8); ANION GAP 5 (5-15); ASPARTATE AMINOTRANSFERASE 31 U/L (10-37); CALCIUM 8.8 mg/dL (8.4-11.0); CHLORIDE 102 mmol/L (98-107); CREATININE 0.75 mg/dL (0.55-1.30); GLUCOSE 87 mg/dL (70-99); POTASSIUM 5.3 mmol/L (3.5-5.1); SODIUM SERUM 137 mmol/L (136-145); TOTAL BILIRUBIN 0.1 mg/dL (0.0-1.0); UREA NITROGEN, BLOOD 29 mg/dL (8-21)
--- NOTE | 2022-01-18 11:25 | NUR ---
Late Entry-Discharge Planning: DCP followed up with [facility] [phone]-no beds per Danielle [facility]s [phone]-reviewing, [facility] [phone]-accept request rapid covid. [facility] [phone] per Ab DCP needs to call Kerry Jack#[phone] F#[phone]. Kerry request referral be sent to F#[phone] per Kerry no beds and pt has no medicare days. DCP made CM aware. Addendum: 01/18/22 at 1607 by Tamy Morris DP DCP faxed pt referral to [facility] [phone] DCP to follow up
[2022-01-18 12:22] VITALS: BP_SYST 153
[2022-01-18] MEDS: PIPERACILLIN/TAZO 4.5GM/DEX-IS 100 ML IV SCH ×3 (15:16→22:00)
--- NOTE | 2022-01-18 15:35 | NUR ---
Spoke w/ patient's daughter-she refused transfer to [facility] and [facility], the 2 facilities that accepted the patient. She will only agree to transfer to a facility in [place]. She stated the family may take the patient home. His hospital bed is broken and will not be fixed until Saturday. They will not make a decision until Saturday about the patient's discharge.
--- NOTE | 2022-01-18 15:50 | NUR ---
RT NOTES Pt to 6L (44%) humidified O2. No adverse reactions noted. Current sat. 93-94%. RN made aware.
--- NOTE | 2022-01-18 17:36 | NUR ---
RT NOTES Pt cont. to tolerate 6L humidified O2, sat 93%. Tracheal sxn done. A/w secure/patent.
[2022-01-18 18:20] VITALS: BP_SYST 139
[2022-01-18 20:00] VITALS: BP_SYST 135
[2022-01-18] MEDS: ATORVASTATIN 20 MG TABLET GT SCH (21:48)
[2022-01-19 00:37] VITALS: BP_SYST 132
[2022-01-19] MEDS: IPRATROPIUM/ALBUTEROL SULFATE 3 ML AMPUL.NEB (DUONEB) IH SCH ×4 (01:19→20:17)
[2022-01-19] MEDS: ACETYLCYSTEINE 20% 4 ML VIAL (RT) INH SCH ×4 (01:19→20:26)
[2022-01-19] MEDS: LORazepam 2 MG/ML VIAL IVP PRN ×2 (02:33→02:46)
[2022-01-19] MEDS: HEPARIN SODIUM,PORCINE 5,000 UNITS/ML VIAL SUBCUT SCH ×2 (02:49→18:30)
[2022-01-19] MEDS: PIPERACILLIN/TAZO 4.5GM/DEX-IS 100 ML IV SCH ×3 (06:00→22:00)
[2022-01-19] MEDS: VALPROIC ACID ORAL SYRUP 250 MG/5 ML UDC GT SCH ×3 (06:00→22:00)
--- NOTE | 2022-01-19 06:00 | NUR ---
1999--599--PT HAS BEEN NON-VERBAL/OPENS EYES SPONT. BUT DOESN'T TRACK. PT HAS TRACH-TPS@6L/M. PT YADIEL WELL WITH POX OF 96-97%. PT HAS LARGE AMT OF THICK YELL SPUT. PT YADIEL RTX WELL. PT HAS F/C. U/O ADEQ->500CC-YELL/CLR. PT HAS TKO IV BUT BOTH PIV ARE OCCLUDED SINCE 649. ENDORSED TO DAY-SHIFT RN. PT HAS GT FEEDING. PT YADIEL WELL. RESID-10CC. HOB UP>30 DEGREES. RAVI BAILEY
[2022-01-19 08:47] LABS: ANION GAP 3 (5-15); CALCIUM 8.5 mg/dL (8.4-11.0); CHLORIDE 102 mmol/L (98-107); CREATININE 0.88 mg/dL (0.55-1.30); GLUCOSE 109 mg/dL (70-99); POTASSIUM 5.5 mmol/L (3.5-5.1); SODIUM SERUM 137 mmol/L (136-145); UREA NITROGEN, BLOOD 34 mg/dL (8-21)
[2022-01-19 09:00] VITALS: BP_SYST 137
[2022-01-19] MEDS: MILK OF MAGNESIA 30 ML UDC GT SCH (09:41)
[2022-01-19] MEDS: LANSOPRAZOLE 30 MG CAPSULE.DR GT SCH (09:42)
[2022-01-19] MEDS: ASPIRIN 81 MG TAB.CHEW GT SCH (09:42)
[2022-01-19] MEDS: amLODIPine BESYLATE 5 MG TABLET GT SCH ×2 (09:42→21:00)
[2022-01-19] MEDS: MULTIVITS,CA,MINERALS/IRON/FA 1 TABLET GT SCH (09:42)
[2022-01-19] MEDS: LOSARTAN POTASSIUM 50 MG TABLET (COZAAR) GT SCH ×2 (09:43→21:00)
[2022-01-19] MEDS: FUROSEMIDE 20 MG/2 ML VIAL IVP SCH (09:44)
[2022-01-19] MEDS: KETOCONAZOLE 2%, 60 GM TOPICAL CREAM. (NIZORAL) TP SCH (09:49)
--- NOTE | 2022-01-19 09:50 | NUR ---
Scheduled medications given per order. Patient stable; resting comfortably in bed with no respiratory distress noted. Addendum: 01/19/22 at 1043 by Norah Toribio RN 0950: Flushed G-tube with 150mls water
--- NOTE | 2022-01-19 11:15 | NUR ---
Patient resting in bed with eyes closed and no respiratory distress noted. Paged Dr. Ballard; spoke to Jennifer - called for PICC or midline order. Awaiting call back. Addendum: 01/19/22 at 1127 by Norah Toribio RN 1125: Received call from Dr. Ballard. Midline order given.
[2022-01-19 12:32] VITALS: BP_SYST 97
[2022-01-19] MEDS: LevETIRAcetam 500 MG/5 ML UDC ORAL LIQUID GT SCH ×2 (14:08→21:00)
--- NOTE | 2022-01-19 14:10 | NUR ---
Scheduled G-tube medications given per order. Patient stable, resting quietly in bed with no respiratory distress noted at this time.
--- NOTE | 2022-01-19 14:10 | NUR ---
Flushed G-tube with 150mls. Patient stable at this time.
[2022-01-19 15:46] VITALS: BP_SYST 105
--- NOTE | 2022-01-19 17:28 | NUR ---
RT NOTES 1728 Pt switched pt back to CA 10L 40% FIO2, Pt saturating 91-92%. Secretions crackly but still dry.
--- NOTE | 2022-01-19 18:30 | NUR ---
Scheduled subq medication given per Dr. Ballard. Patient stable throughout shift.
[2022-01-19 20:00] VITALS: BP_SYST 134
[2022-01-19] MEDS: ATORVASTATIN 20 MG TABLET GT SCH (21:00)
[2022-01-20] MEDS: IPRATROPIUM/ALBUTEROL SULFATE 3 ML AMPUL.NEB (DUONEB) IH SCH ×4 (01:57→19:31)
[2022-01-20] MEDS: ACETYLCYSTEINE 20% 4 ML VIAL (RT) INH SCH ×4 (01:57→19:31)
[2022-01-20] MEDS: HEPARIN SODIUM,PORCINE 5,000 UNITS/ML VIAL SUBCUT SCH ×2 (03:27→14:00)
[2022-01-20] MEDS: VALPROIC ACID ORAL SYRUP 250 MG/5 ML UDC GT SCH ×3 (05:33→22:44)
[2022-01-20] MEDS: PIPERACILLIN/TAZO 4.5GM/DEX-IS 100 ML IV SCH ×3 (05:34→22:40)
--- NOTE | 2022-01-20 06:00 | NUR ---
--PT CONT. WITH STABLE VS. AFEBRILE. PT CONT. WITH TRACH-WITH TPS@6L/M. PT ALSO HAS THICK SPUT VIA TRACH. PT YADIEL RTX WELL. PT HAS F/C I/P-U/O IS 850CC-YELL/CLR. PT IS VERY OBESE. PT ENDORSED TO LEO PHAN. GEN. COND HAS BEEN STABLE. PT OPENS EYES OCCASS.BUT DOESN'T TRACK. PT'S CALLED EARLIER. PT ALSO HAS NEW MIDLINE(PUT IN 01/19/22) VIA RIGHT ARM. RAVI BAILEY
[2022-01-20 08:00] VITALS: BP_SYST 114
[2022-01-20] MEDS: KETOCONAZOLE 2%, 60 GM TOPICAL CREAM. (NIZORAL) TP SCH (09:00)
[2022-01-20] MEDS: MULTIVITS,CA,MINERALS/IRON/FA 1 TABLET GT SCH (09:00)
[2022-01-20] MEDS: MILK OF MAGNESIA 30 ML UDC GT SCH (09:12)
[2022-01-20] MEDS: LANSOPRAZOLE 30 MG CAPSULE.DR GT SCH (09:13)
[2022-01-20] MEDS: ASPIRIN 81 MG TAB.CHEW GT SCH (09:13)
[2022-01-20] MEDS: HYDROCHLOROTHIAZIDE 12.5 MG CAPSULE (HCTZ) PO SCH (09:13)
[2022-01-20] MEDS: LOSARTAN POTASSIUM 50 MG TABLET (COZAAR) GT SCH ×2 (09:13→22:41)
[2022-01-20] MEDS: amLODIPine BESYLATE 5 MG TABLET GT SCH ×2 (09:14→22:42)
[2022-01-20] MEDS: LevETIRAcetam 500 MG/5 ML UDC ORAL LIQUID GT SCH ×2 (09:39→22:43)
[2022-01-20 12:15] VITALS: BP_SYST 128
[2022-01-20 16:05] VITALS: BP_SYST 131
--- NOTE | 2022-01-20 18:00 | NUR ---
PT HAS BEEN LYING IN BED QUIETLY WITH EYES OPEN. TRACH PATENT ET SECURE TO TC 35% FIO2. PT SUCTIONED PER TRACH PRN. HOB ELEVATED SEMIFOWLER'S POSITION. NO SEIZURE ACTIVITY NOTED. PT HAS GENERALIZED GROSS EDEMA . RANGEL CATH PATENT AND DRAINING LIGHT YELLOW URINE. PT IS TOLERATING PEG TUBE FEEDINGS WITHOUT N/V/D. PT TURNED Q 2 HOURS AND INCONTINENT CARE RENDERED NEEDED. SKIN KEPT CLEAN ET DRY. PT'S SPOUSE VISITED EARLIER AT BEDSIDE. RUE PICC LINE DRESSING CHANGED DUE TO BLEEDING NOTED AT SITE PER PHYSICIAN'S DIRECTIVES. NO FURTHER BLEEDING NOTED AT SITE.
[2022-01-20 20:00] VITALS: BP_SYST 129
[2022-01-20] MEDS: ATORVASTATIN 20 MG TABLET GT SCH (22:41)
[2022-01-21 00:09] VITALS: BP_SYST 124
[2022-01-21] MEDS: IPRATROPIUM/ALBUTEROL SULFATE 3 ML AMPUL.NEB (DUONEB) IH SCH ×4 (00:55→19:40)
[2022-01-21] MEDS: ACETYLCYSTEINE 20% 4 ML VIAL (RT) INH SCH ×4 (00:56→19:40)
[2022-01-21] MEDS: HEPARIN SODIUM,PORCINE 5,000 UNITS/ML VIAL SUBCUT SCH ×2 (02:00→14:27)
[2022-01-21] MEDS: PIPERACILLIN/TAZO 4.5GM/DEX-IS 100 ML IV SCH ×3 (05:43→21:20)
[2022-01-21] MEDS: VALPROIC ACID ORAL SYRUP 250 MG/5 ML UDC GT SCH ×3 (05:44→21:19)
[2022-01-21 08:00] VITALS: BP_SYST 124
[2022-01-21 08:21] LABS: BASOPHILS % (AUTO) 0.3 % (0.0-2.0); EOSINOPHILS # (AUTO) 0.2 K/uL (0.0-0.4); EOSINOPHILS % (AUTO) 7.4 % (0.0-4.0); LYMPHOCYTES # (AUTO) 0.8 K/uL (1.0-5.5); LYMPHOCYTES % (AUTO) 24.7 % (20.5-51.5); MEAN CORPUSCULAR VOLUME 99 fL (79.0-98.0); MONOCYTES # (AUTO) 0.2 K/uL (0.0-1.0); MONOCYTES % (AUTO) 6.2 % (1.7-9.3); NEUTROPHILS # (AUTO) 2.1 K/uL (1.8-7.7); NEUTROPHILS % (AUTO) 61.4 % (40.0-70.0); PLATELET COUNT (AUTO) 130 K/uL (130-430); RED BLOOD CELL COUNT(AUTO) 2.43 MIL/uL (4.2-6.2); RED CELL DISTRIBUTION WIDTH 19.4 % (9.0-15.0); WHITE BLOOD COUNT (AUTO) 3.4 K/uL (4.8-10.8)
[2022-01-21] MEDS: KETOCONAZOLE 2%, 60 GM TOPICAL CREAM. (NIZORAL) TP SCH (09:00)
[2022-01-21] MEDS: amLODIPine BESYLATE 5 MG TABLET GT SCH ×2 (09:00→21:19)
[2022-01-21 09:01] LABS: ANION GAP 3 (5-15); CALCIUM 8.5 mg/dL (8.4-11.0); CHLORIDE 102 mmol/L (98-107); CREATININE 0.78 mg/dL (0.55-1.30); GLUCOSE 86 mg/dL (70-99); POTASSIUM 5.6 mmol/L (3.5-5.1); SODIUM SERUM 138 mmol/L (136-145); UREA NITROGEN, BLOOD 35 mg/dL (8-21)
[2022-01-21 09:35] VITALS: BP_SYST 124
[2022-01-21] MEDS: ASPIRIN 81 MG TAB.CHEW GT SCH (09:52)
[2022-01-21] MEDS: LANSOPRAZOLE 30 MG CAPSULE.DR GT SCH (09:52)
[2022-01-21] MEDS: LOSARTAN POTASSIUM 50 MG TABLET (COZAAR) GT SCH (09:52)
[2022-01-21] MEDS: MULTIVITS,CA,MINERALS/IRON/FA 1 TABLET GT SCH (09:53)
[2022-01-21] MEDS: HYDROCHLOROTHIAZIDE 12.5 MG CAPSULE (HCTZ) PO SCH (09:54)
[2022-01-21] MEDS: MILK OF MAGNESIA 30 ML UDC GT SCH (09:54)
[2022-01-21] MEDS: LevETIRAcetam 500 MG/5 ML UDC ORAL LIQUID GT SCH ×2 (09:54→21:19)
[2022-01-21 12:00] VITALS: BP_SYST 133
[2022-01-21 16:00] VITALS: BP_SYST 136
--- NOTE | 2022-01-21 19:11 | NUR ---
PT CONTINUES T0 REST QUIETLY IN BED QUIETLY WITH EYES OPEN. TRACH PATENT ET SECURE TO TC 35% FIO2. PT SUCTIONED PER TRACH PRN. HOB ELEVATED SEMIFOWLER'S POSITION. NO SEIZURE ACTIVITY NOTED. PT HAS GENERALIZED GROSS EDEMA . RANGEL CATH PATENT AND DRAINING LIGHT YELLOW URINE. PT IS TOLERATING PEG TUBE FEEDINGS WITHOUT N/V/D. PT TURNED Q 2 HOURS AND INCONTINENT CARE RENDERED NEEDED. SKIN KEPT CLEAN ET DRY. PT'S SPOUSE VISITED EARLIER AT BEDSIDE.
[2022-01-21 20:00] VITALS: BP_SYST 136
[2022-01-21] MEDS: ATORVASTATIN 20 MG TABLET GT SCH (21:19)
[2022-01-22] VITALS: BP_SYST 114
[2022-01-22] MEDS: HEPARIN SODIUM,PORCINE 5,000 UNITS/ML VIAL SUBCUT SCH ×2 (02:00→14:00)
[2022-01-22 04:15] VITALS: BP_SYST 148
[2022-01-22] MEDS: IPRATROPIUM/ALBUTEROL SULFATE 3 ML AMPUL.NEB (DUONEB) IH SCH ×4 (04:15→19:51)
[2022-01-22] MEDS: ACETYLCYSTEINE 20% 4 ML VIAL (RT) INH SCH ×4 (04:16→19:51)
[2022-01-22] MEDS: PIPERACILLIN/TAZO 4.5GM/DEX-IS 100 ML IV SCH ×3 (06:50→21:32)
[2022-01-22] MEDS: VALPROIC ACID ORAL SYRUP 250 MG/5 ML UDC GT SCH ×3 (06:52→20:51)
[2022-01-22 08:00] VITALS: BP_SYST 104
[2022-01-22 08:33] LABS: ALANINE AMINOTRANSFERASE 15 U/L (12-78); ALBUMIN 1.5 g/dL (3.4-4.8); ANION GAP 5 (5-15); ASPARTATE AMINOTRANSFERASE 23 U/L (10-37); CALCIUM 8.6 mg/dL (8.4-11.0); CHLORIDE 102 mmol/L (98-107); CREATININE 0.89 mg/dL (0.55-1.30); GLUCOSE 104 mg/dL (70-99); POTASSIUM 5.7 mmol/L (3.5-5.1); SODIUM SERUM 138 mmol/L (136-145); TOTAL BILIRUBIN 0.1 mg/dL (0.0-1.0); UREA NITROGEN, BLOOD 38 mg/dL (8-21)
[2022-01-22] MEDS: ASPIRIN 81 MG TAB.CHEW GT SCH (09:00)
[2022-01-22] MEDS: amLODIPine BESYLATE 5 MG TABLET GT SCH (09:00)
[2022-01-22] MEDS: KETOCONAZOLE 2%, 60 GM TOPICAL CREAM. (NIZORAL) TP SCH (09:00)
[2022-01-22] MEDS: LOSARTAN POTASSIUM 50 MG TABLET (COZAAR) GT SCH (09:00)
[2022-01-22] MEDS: MILK OF MAGNESIA 30 ML UDC GT SCH (09:00)
[2022-01-22] MEDS: LevETIRAcetam 500 MG/5 ML UDC ORAL LIQUID GT SCH ×2 (09:46→20:51)
[2022-01-22] MEDS: HYDROCHLOROTHIAZIDE 12.5 MG CAPSULE (HCTZ) PO SCH (09:46)
[2022-01-22] MEDS: MULTIVITS,CA,MINERALS/IRON/FA 1 TABLET GT SCH (09:47)
[2022-01-22] MEDS: LANSOPRAZOLE 30 MG CAPSULE.DR GT SCH (09:47)
[2022-01-22 12:05] VITALS: BP_SYST 107
[2022-01-22 13:42] LABS: CORRECTED WHITE BLOOD COUNT 5.5 K/uL (4.5-11.0); HEMATOCRIT 26.8 % (36-54); RED BLOOD CELL COUNT(AUTO) 2.63 MIL/uL (4.2-6.2); WHITE BLOOD COUNT (AUTO) 5.5 K/uL (4.8-10.8)
[2022-01-22 13:43] LABS: BASOPHILS % (AUTO) 0.3 % (0.0-2.0); EOSINOPHILS # (AUTO) 0.3 K/uL (0.0-0.4); EOSINOPHILS % (AUTO) 5.3 % (0.0-4.0); LYMPHOCYTES # (AUTO) 0.9 K/uL (1.0-5.5); LYMPHOCYTES % (AUTO) 16.4 % (20.5-51.5); MEAN CORPUSCULAR VOLUME 102 fL (79.0-98.0); MONOCYTES # (AUTO) 0.3 K/uL (0.0-1.0); MONOCYTES % (AUTO) 4.9 % (1.7-9.3); NEUTROPHILS % (AUTO) 73.1 % (40.0-70.0); PLATELET COUNT (AUTO) 139 K/uL (130-430); RED CELL DISTRIBUTION WIDTH 19.6 % (9.0-15.0)
[2022-01-22 16:15] VITALS: BP_SYST 148
--- NOTE | 2022-01-22 19:00 | NUR ---
I recieved pt in bed awake but not oriented ,needs trach suction frequently, vitals updated
[2022-01-22 20:00] VITALS: BP_SYST 101; BP_SYST 133
[2022-01-22] MEDS: ATORVASTATIN 20 MG TABLET GT SCH (20:52)
[2022-01-23] VITALS: BP_SYST 112
--- NOTE | 2022-01-23 | NUR ---
had a BM cleaned and linen chafed,vitals eve are within normal limit
[2022-01-23] MEDS: ACETYLCYSTEINE 20% 4 ML VIAL (RT) INH SCH ×4 (01:05→20:34)
[2022-01-23] MEDS: IPRATROPIUM/ALBUTEROL SULFATE 3 ML AMPUL.NEB (DUONEB) IH SCH ×4 (01:05→20:34)
[2022-01-23] MEDS: HEPARIN SODIUM,PORCINE 5,000 UNITS/ML VIAL SUBCUT SCH ×2 (03:17→14:00)
[2022-01-23 06:00] VITALS: BP_SYST 103
[2022-01-23] MEDS: VALPROIC ACID ORAL SYRUP 250 MG/5 ML UDC GT SCH ×3 (06:00→20:52)
[2022-01-23] MEDS: PIPERACILLIN/TAZO 4.5GM/DEX-IS 100 ML IV SCH ×3 (07:44→20:52)
--- NOTE | 2022-01-23 07:55 | NUR ---
Medicated as ordered positioned to left side
[2022-01-23 08:00] LABS: ANION GAP 4 (5-15); CHLORIDE 103 mmol/L (98-107); GLUCOSE 87 mg/dL (70-99); SODIUM SERUM 138 mmol/L (136-145)
[2022-01-23 08:01] LABS: CALCIUM 8.9 mg/dL (8.4-11.0); UREA NITROGEN, BLOOD 36 mg/dL (8-21)
[2022-01-23] MEDS: ASPIRIN 81 MG TAB.CHEW GT SCH (09:00)
[2022-01-23] MEDS: MILK OF MAGNESIA 30 ML UDC GT SCH (09:00)
[2022-01-23] MEDS: MULTIVITS,CA,MINERALS/IRON/FA 1 TABLET GT SCH (09:00)
[2022-01-23] MEDS: KETOCONAZOLE 2%, 60 GM TOPICAL CREAM. (NIZORAL) TP SCH (09:00)
[2022-01-23] MEDS: LANSOPRAZOLE 30 MG CAPSULE.DR GT SCH (09:00)
[2022-01-23] MEDS: HYDROCHLOROTHIAZIDE 12.5 MG CAPSULE (HCTZ) PO SCH (09:00)
[2022-01-23] MEDS: LOSARTAN POTASSIUM 50 MG TABLET (COZAAR) GT SCH (09:00)
[2022-01-23] MEDS: LevETIRAcetam 500 MG/5 ML UDC ORAL LIQUID GT SCH ×2 (09:00→20:52)
[2022-01-23] MEDS: FUROSEMIDE 40 MG/4 ML VIAL IVP SCH (09:00)
[2022-01-23 11:30] VITALS: BP_SYST 118
--- NOTE | 2022-01-23 12:12 | NUR ---
Spoke w/patient's daughter, Griselda Cuevas [phone]. She requested transfer to [facility] in [place]. I called [facility] and spoke to Sherly-She stated they had no beds and could not accept a patient for lateral transfer at family request. I gave this information to the Griselda Cuevas.
[2022-01-23 14:55] VITALS: BP_SYST 113
[2022-01-23 16:00] VITALS: BP_SYST 113
--- NOTE | 2022-01-23 19:00 | NUR ---
received pt in bed oriented to self. suction via trach requires frequent intervention,has a Glez catheter in place.vitals updated are within normal limit
[2022-01-23 20:00] VITALS: BP_SYST 100
[2022-01-23] MEDS: ATORVASTATIN 20 MG TABLET GT SCH (20:57)
--- NOTE | 2022-01-23 21:00 | NUR ---
pt cleaned using CHG and linen changed orals cares and suction with moderate loose secretions via trach.positioned to left side
[2022-01-24] VITALS (7 sets, daily range): BP systolic 106–128
[2022-01-24] MEDS: HEPARIN SODIUM,PORCINE 5,000 UNITS/ML VIAL SUBCUT SCH ×2 (02:00→13:17)
[2022-01-24] MEDS: ACETYLCYSTEINE 20% 4 ML VIAL (RT) INH SCH ×4 (02:03→20:16)
[2022-01-24] MEDS: IPRATROPIUM/ALBUTEROL SULFATE 3 ML AMPUL.NEB (DUONEB) IH SCH ×4 (02:03→20:15)
--- NOTE | 2022-01-24 04:00 | NUR ---
vitals done are within normal range
[2022-01-24] MEDS: VALPROIC ACID ORAL SYRUP 250 MG/5 ML UDC GT SCH ×3 (05:38→20:59)
[2022-01-24] MEDS: PIPERACILLIN/TAZO 4.5GM/DEX-IS 100 ML IV SCH ×3 (05:43→20:59)
[2022-01-24 06:51] LABS: BASOPHILS % (AUTO) 0.3 % (0.0-2.0); EOSINOPHILS # (AUTO) 0.3 K/uL (0.0-0.4); EOSINOPHILS % (AUTO) 6.2 % (0.0-4.0); HEMATOCRIT 22.7 % (36-54); LYMPHOCYTES % (AUTO) 18.8 % (20.5-51.5); MEAN CORPUSCULAR VOLUME 101 fL (79.0-98.0); MONOCYTES # (AUTO) 0.4 K/uL (0.0-1.0); MONOCYTES % (AUTO) 7.2 % (1.7-9.3); NEUTROPHILS # (AUTO) 3.5 K/uL (1.8-7.7); NEUTROPHILS % (AUTO) 67.5 % (40.0-70.0); PLATELET COUNT (AUTO) 102 K/uL (130-430); RED BLOOD CELL COUNT(AUTO) 2.25 MIL/uL (4.2-6.2); RED CELL DISTRIBUTION WIDTH 19.3 % (9.0-15.0); WHITE BLOOD COUNT (AUTO) 5.2 K/uL (4.8-10.8)
[2022-01-24 07:33] LABS: CALCIUM 8.2 mg/dL (8.4-11.0); CHLORIDE 104 mmol/L (98-107); CREATININE 0.97 mg/dL (0.55-1.30); GLUCOSE 68 mg/dL (70-99); SODIUM SERUM 141 mmol/L (136-145); UREA NITROGEN, BLOOD 35 mg/dL (8-21)
[2022-01-24 07:38] LABS: ANION GAP < 3 (5-15)
--- NOTE | 2022-01-24 08:53 | NUR ---
RECEIVED PT WITH CLOGGED GT. ASSISTED BY LEO ROMERO FROM GI LAB TO UNCLOGGED GT. GT TUBE IS NOW CLEAR AND FLUSHING WELL.
[2022-01-24] MEDS: NICOTINE 21 MG/24 HR PATCH.TD24 TD SCH ×2 (09:00→09:15)
[2022-01-24] MEDS: LOSARTAN POTASSIUM 50 MG TABLET (COZAAR) GT SCH (09:15)
[2022-01-24] MEDS: LANSOPRAZOLE 30 MG CAPSULE.DR GT SCH (09:15)
[2022-01-24] MEDS: MULTIVITS,CA,MINERALS/IRON/FA 1 TABLET GT SCH (09:15)
[2022-01-24] MEDS: ASPIRIN 81 MG TAB.CHEW GT SCH (09:15)
[2022-01-24] MEDS: FUROSEMIDE 40 MG/4 ML VIAL IVP SCH (09:15)
[2022-01-24] MEDS: MILK OF MAGNESIA 30 ML UDC GT SCH (09:15)
[2022-01-24] MEDS: LevETIRAcetam 500 MG/5 ML UDC ORAL LIQUID GT SCH ×2 (09:15→21:00)
[2022-01-24] MEDS: HYDROCHLOROTHIAZIDE 12.5 MG CAPSULE (HCTZ) PO SCH (09:15)
[2022-01-24] MEDS: KETOCONAZOLE 2%, 60 GM TOPICAL CREAM. (NIZORAL) TP SCH (09:16)
--- NOTE | 2022-01-24 12:43 | NUR ---
S/W DR. KRISTINA DC NICOTINE PATCH AND INFORMED HIM PT'S LATEST H/H 7.5/22.7 (FROM 8.7/.8). VERBALIZED UNDERSTANDING BUT NO FURTHER ORDERS NFOR H/H AT THIS TIME.
--- NOTE | 2022-01-24 17:02 | NUR ---
S/W DR. ACEVEDO, INQUIRED IF HE WANTS TO DC HEPARIN D/T LOW H/H, PLATELET. PER OKAY TO CONTINUE MEDICATION AND JUST ORDERED FOR CBC IN AM TRISH TO FOLLOW UP. Addendum: 01/24/22 at 1717 by [facility], LEO BAILEY MADE ALSO AWARE PT IS GOING TO [facility], PENDING BED PLACEMENT. STATED YES PT IS OKAY TO GO.
--- NOTE | 2022-01-24 19:00 | NUR ---
I RECEIVED PT LYING IN BED ORIENTED TO SELF.PEG TUBE IS PATENT ON NEPRO AND FLUSH 150ML Q6 WATER. GENERALIZED EDEMA AND OOZING TO SKIN .TRACH IS PATENT VITALS DONE BPS 120/59 HR 57 RR 20 TEMP 96.5
[2022-01-24] MEDS: ATORVASTATIN 20 MG TABLET GT SCH (21:01)
--- NOTE | 2022-01-24 22:00 | NUR ---
suction via trach done with moderate loose secretions cares carried out
[2022-01-25 00:45] VITALS: BP_SYST 127
[2022-01-25] MEDS: IPRATROPIUM/ALBUTEROL SULFATE 3 ML AMPUL.NEB (DUONEB) IH SCH ×3 (01:29→13:32)
[2022-01-25] MEDS: ACETYLCYSTEINE 20% 4 ML VIAL (RT) INH SCH ×3 (01:34→13:32)
[2022-01-25] MEDS: HEPARIN SODIUM,PORCINE 5,000 UNITS/ML VIAL SUBCUT SCH ×2 (02:00→13:45)
--- NOTE | 2022-01-25 02:00 | NUR ---
cares and trach suction done vitals done.no change in amount of secretions
--- NOTE | 2022-01-25 06:00 | NUR ---
Peg tube feeding in progress vitals are within normal range
[2022-01-25] MEDS: VALPROIC ACID ORAL SYRUP 250 MG/5 ML UDC GT SCH ×3 (06:03→22:38)
[2022-01-25] MEDS: PIPERACILLIN/TAZO 4.5GM/DEX-IS 100 ML IV SCH ×3 (06:04→22:38)
--- NOTE | 2022-01-25 06:21 | NUR ---
chest x ray done
[2022-01-25 07:47] VITALS: BP_SYST 110
[2022-01-25 07:48] LABS: BASOPHILS % (AUTO) 0.3 % (0.0-2.0); EOSINOPHILS # (AUTO) 0.3 K/uL (0.0-0.4); EOSINOPHILS % (AUTO) 7.4 % (0.0-4.0); LYMPHOCYTES # (AUTO) 0.9 K/uL (1.0-5.5); LYMPHOCYTES % (AUTO) 21.6 % (20.5-51.5); MEAN CORPUSCULAR VOLUME 100 fL (79.0-98.0); MONOCYTES # (AUTO) 0.3 K/uL (0.0-1.0); MONOCYTES % (AUTO) 6.5 % (1.7-9.3); NEUTROPHILS # (AUTO) 2.6 K/uL (1.8-7.7); NEUTROPHILS % (AUTO) 64.2 % (40.0-70.0); PLATELET COUNT (AUTO) 93 K/uL (130-430); RED BLOOD CELL COUNT(AUTO) 2.19 MIL/uL (4.2-6.2); RED CELL DISTRIBUTION WIDTH 19.7 % (9.0-15.0)
[2022-01-25] MEDS: MILK OF MAGNESIA 30 ML UDC GT SCH (08:34)
[2022-01-25] MEDS: ASPIRIN 81 MG TAB.CHEW GT SCH (08:34)
[2022-01-25] MEDS: LevETIRAcetam 500 MG/5 ML UDC ORAL LIQUID GT SCH ×2 (08:34→22:39)
[2022-01-25] MEDS: LANSOPRAZOLE 30 MG CAPSULE.DR GT SCH (08:35)
[2022-01-25] MEDS: NICOTINE 21 MG/24 HR PATCH.TD24 TD SCH (08:35)
[2022-01-25] MEDS: LOSARTAN POTASSIUM 50 MG TABLET (COZAAR) GT SCH (08:35)
[2022-01-25] MEDS: MULTIVITS,CA,MINERALS/IRON/FA 1 TABLET GT SCH (08:35)
[2022-01-25] MEDS: FUROSEMIDE 40 MG/4 ML VIAL IVP SCH (08:36)
[2022-01-25] MEDS: KETOCONAZOLE 2%, 60 GM TOPICAL CREAM. (NIZORAL) TP SCH (08:36)
--- NOTE | 2022-01-25 10:30 | NUR ---
0730 Pt. in bed, hob at 30 degrees, 02 via trach at 4l/min. Vss, no distress noted, will monitor.
--- NOTE | 2022-01-25 10:30 | NUR ---
Discharge Planning: DCP faxed pt referral to F#[phone], F#[phone] DCP to follow up. Addendum: 01/25/22 at 1400 by Tamy VAIL [facility] [phone] will accept pt in a couple of days when bed is available. DCP to follow up
--- NOTE | 2022-01-25 12:50 | NUR ---
Patient's agreed to transfer to [facility]. Referral sent to [facility] for Sub Acute bed [phone]
--- NOTE | 2022-01-25 13:53 | NUR ---
Patient accepted at [facility]-[phone]. They will not have a male bed for a few days. They will notify us when a bed is available.
[2022-01-25 14:12] VITALS: BP_SYST 116
[2022-01-25] MEDS: SOD FERRIC GLUC COMPLEX/SUC 125 MG in NS 100 ML IV SCH (16:02)
--- NOTE | 2022-01-25 17:58 | NUR ---
1200 Pt in bed, hob at 30 degrees, suctioned via trach with scant secretions noted. Vss, turned q2, wound care given to coccyx area. 1800 Pt. needs met this shift, vss, turned q2 and kept dry and clean. vss, tolerating tube feeding with no residual, hob at 30 degrees, no resp. distress, pox of 100% via trach . Report given to noc shift.
[2022-01-25 18:32] VITALS: BP_SYST 118
[2022-01-25 20:00] VITALS: BP_SYST 127
[2022-01-25] MEDS: ATORVASTATIN 20 MG TABLET GT SCH (22:38)
[2022-01-26 00:35] VITALS: BP_SYST 121
[2022-01-26 04:00] VITALS: BP_SYST 125
[2022-01-26] MEDS: HEPARIN SODIUM,PORCINE 5,000 UNITS/ML VIAL SUBCUT SCH ×2 (04:56→17:15)
[2022-01-26] MEDS: ACETYLCYSTEINE 20% 4 ML VIAL (RT) INH SCH ×5 (06:05→21:46)
[2022-01-26] MEDS: IPRATROPIUM/ALBUTEROL SULFATE 3 ML AMPUL.NEB (DUONEB) IH SCH ×5 (06:05→20:20)
[2022-01-26] MEDS: PIPERACILLIN/TAZO 4.5GM/DEX-IS 100 ML IV SCH ×3 (06:13→21:25)
[2022-01-26] MEDS: VALPROIC ACID ORAL SYRUP 250 MG/5 ML UDC GT SCH ×3 (06:13→21:27)
[2022-01-26 07:36] LABS: BASOPHILS % (AUTO) 0.3 % (0.0-2.0); EOSINOPHILS # (AUTO) 0.3 K/uL (0.0-0.4); EOSINOPHILS % (AUTO) 6.4 % (0.0-4.0); HEMATOCRIT 22.7 % (36-54); LYMPHOCYTES # (AUTO) 0.9 K/uL (1.0-5.5); LYMPHOCYTES % (AUTO) 18.2 % (20.5-51.5); MEAN CORPUSCULAR VOLUME 102 fL (79.0-98.0); MONOCYTES # (AUTO) 0.3 K/uL (0.0-1.0); MONOCYTES % (AUTO) 6.3 % (1.7-9.3); NEUTROPHILS # (AUTO) 3.4 K/uL (1.8-7.7); NEUTROPHILS % (AUTO) 68.8 % (40.0-70.0); PLATELET COUNT (AUTO) 93 K/uL (130-430); RED BLOOD CELL COUNT(AUTO) 2.23 MIL/uL (4.2-6.2); RED CELL DISTRIBUTION WIDTH 19.3 % (9.0-15.0); WHITE BLOOD COUNT (AUTO) 4.9 K/uL (4.8-10.8)
[2022-01-26 08:00] VITALS: BP_SYST 111
[2022-01-26] MEDS: MILK OF MAGNESIA 30 ML UDC GT SCH (11:00)
[2022-01-26] MEDS: FUROSEMIDE 40 MG/4 ML VIAL IVP SCH (11:01)
[2022-01-26] MEDS: ASPIRIN 81 MG TAB.CHEW GT SCH (11:02)
[2022-01-26] MEDS: LANSOPRAZOLE 30 MG CAPSULE.DR GT SCH (11:02)
[2022-01-26] MEDS: MULTIVITS,CA,MINERALS/IRON/FA 1 TABLET GT SCH (11:02)
[2022-01-26] MEDS: LOSARTAN POTASSIUM 50 MG TABLET (COZAAR) GT SCH (11:03)
[2022-01-26] MEDS: LevETIRAcetam 500 MG/5 ML UDC ORAL LIQUID GT SCH ×2 (11:10→21:25)
[2022-01-26 17:25] VITALS: BP_SYST 119
[2022-01-26] MEDS: KETOCONAZOLE 2%, 60 GM TOPICAL CREAM. (NIZORAL) TP SCH (17:31)
[2022-01-26] MEDS: SOD FERRIC GLUC COMPLEX/SUC 125 MG in NS 100 ML IV SCH (18:17)
[2022-01-26 20:00] VITALS: BP_SYST 121
[2022-01-26] MEDS: ATORVASTATIN 20 MG TABLET GT SCH (21:23)
[2022-01-27] VITALS: BP_SYST 112
[2022-01-27] MEDS: IPRATROPIUM/ALBUTEROL SULFATE 3 ML AMPUL.NEB (DUONEB) IH SCH ×2 (01:28→08:00)
[2022-01-27] MEDS: ACETYLCYSTEINE 20% 4 ML VIAL (RT) INH SCH ×2 (01:33→08:10)
[2022-01-27] MEDS: HEPARIN SODIUM,PORCINE 5,000 UNITS/ML VIAL SUBCUT SCH (01:59)
[2022-01-27 04:00] VITALS: BP_SYST 118
[2022-01-27] MEDS: VALPROIC ACID ORAL SYRUP 250 MG/5 ML UDC GT SCH (05:59)
[2022-01-27] MEDS: PIPERACILLIN/TAZO 4.5GM/DEX-IS 100 ML IV SCH (06:00)
[2022-01-27 08:00] VITALS: BP_SYST 119
[2022-01-27 08:30] VITALS: BP_SYST 119
[2022-01-27] MEDS: MILK OF MAGNESIA 30 ML UDC GT SCH (09:00)
[2022-01-27] MEDS: ASPIRIN 81 MG TAB.CHEW GT SCH (11:10)
[2022-01-27] MEDS: LOSARTAN POTASSIUM 50 MG TABLET (COZAAR) GT SCH (11:11)
[2022-01-27] MEDS: LevETIRAcetam 500 MG/5 ML UDC ORAL LIQUID GT SCH (11:11)
[2022-01-27] MEDS: MULTIVITS,CA,MINERALS/IRON/FA 1 TABLET GT SCH (11:12)
[2022-01-27] MEDS: LANSOPRAZOLE 30 MG CAPSULE.DR GT SCH (11:12)
[2022-01-27] MEDS: FUROSEMIDE 40 MG/4 ML VIAL IVP SCH (11:13)
[2022-01-27] MEDS: KETOCONAZOLE 2%, 60 GM TOPICAL CREAM. (NIZORAL) TP SCH (11:14)
--- NOTE | 2022-01-27 11:50 | NUR ---
FELIPE followed up with [facility] [phone], who indicated that Pt. has a bed however due to covid quarantine in the facility Pt. would not be admitted for another week. Pt. family and daughter were at bed side and intend to take Pt. AMA to another ER. TEACHER [employer] and charge nurse both spoke with the family to de-escalate the situation. was given an opportunity to ventilate, she stated being disappointed in the care he received as the reason for AMA transfer. reported she has paid for ambulance privately and they will be transporting Pt. shortly. Family was informed of the delay in placement due to quarantine restrictions. was informed of family intent to take Pt. AMA and signed AMA forms, family indicated they understood the risks of doing so. [employer] offered empathetic listening and emotional support as became teary eyed. She is aware of the risk involved with transfer and pending bed with [facility] should she choose to follow up with admittance to this facility. Family de-escalated and appeared to be cognizant of risk and making informed decision about leaving AMA for Pt.
--- NOTE | 2022-01-27 12:30 | NUR ---
RT NOTES Pt is being picked up by ambulance. Tracheal sxn done, a/w secure/patent. EMT was instructed to place pt on 4L O2 via tbar to trach tube.
--- NOTE | 2022-01-27 12:45 | NUR ---
AT 1205 PT'S GABO BUCK CAME IN AND WANTED PT TO TAKE ANOTHER HOSPITAL . PT'S SIGNED AMA FORM AT 1230.ASKED PT THE REASON FOR AMA . PER YESTERDAY ON 01/26/22 SHE CAME IN THE ROOM AROUND 1330 AND FOUND HER IN THE BOWEL MOVEMENT UP TO HIS KNEES. BOWEL MOVEMENT ALL OVER ON HIS SHEET PER . SHE STATED THAT SHE INFORMED LADY IN FRONT. AND ASKED FOR NURSE BUT NURSE WAS AT LUNCH. PT STATED SHE WANTED TO TAKE PATIENT AMA SINCE YESTERDAY BUT COULD NOT ARRANGE AMBULANCE. PT'S ARRANGED AMBULANCE NAME [facility] .DR GUPTA NOTIFIED 1235 FOR AMA . HOUSE SUPERVISIOR MALU NOTIFIED. THIS CHARGE NURSE EXPLAINED THE RISK ASSOCIATED WITH LEAVING HOSPITAL AGAINST MEDICAL ADVISE INCLUDING PT'S VERBALIZED UNDERSTANDING .PRIMARY NURSE AT BED SIDE SPEAKING TO PT'S FAMILY. PAD CUTTER JESUS NOTIFIED SHE SPOKE TO PT.
--- NOTE | 2022-01-27 12:51 | NUR ---
PT AND DAUGHTER ARRIVED IN PT ROOM AND AND I WAS INFORMED THAT SHE HAD SIGNED AMA FORM . AMBULENCE ON WAY TO WATER LEAK REPAIRER PATIENT. EXPLAINED TO OF PATIENT THE RISK OF LEAVING THE HOSPITAL AGAINST MEDICAL ADVICE, INCLUDING . PT VERBALIZED UNDERSTANDING. MIDLINE REMOVED, G-TUBE INTACT AND FLUSHED, TRACH PATENT AND INTACT. RT HERE AND SUCTIONED HIM. REPORT GIVEN TO MIHAELA CHAMPAGNE EMT. THEY STATED PT WAS GOING TO BE TAKEN TO [facility]. PT LEFT AMA IN STABLE CONDITION.,
== END 2022-01-27 18:27 | disposition left against medical advice (07) | DRG 100 ==
LOC: SED 08:01 → SIC 11:32 → STU 01-17 19:22
PROVIDERS: ADMIT Family Medicine; ATTEND Family Medicine
PROC: 4A10X4Z Monitoring of Central Nervous Electrical Activity, External Approach (ICD-10-PCS; 2022-01-19)
PROC: 4A10X4Z Monitoring of Central Nervous Electrical Activity, External Approach (ICD-10-PCS; principal; 2022-01-21)
DX: G40.901 Epilepsy, unspecified, not intractable, with status epilepticus (principal); E43 Unspecified severe protein-calorie malnutrition; J18.9 Pneumonia, unspecified organism; R53.2 Functional quadriplegia; J96.10 Chronic respiratory failure, unspecified whether with hypoxia or hypercapnia; N17.9 Acute kidney failure, unspecified; J44.0 Chronic obstructive pulmonary disease with (acute) lower respiratory infection; N39.0 Urinary tract infection, site not specified; G93.49 Other encephalopathy; Z68.42 Body mass index [BMI] 45.0-49.9, adult; Z20.822 Contact with and (suspected) exposure to COVID-19; D64.9 Anemia, unspecified; E86.0 Dehydration; E03.9 Hypothyroidism, unspecified; R13.10 Dysphagia, unspecified; D50.9 Iron deficiency anemia, unspecified; B96.5 Pseudomonas (aeruginosa) (mallei) (pseudomallei) as the cause of diseases classified elsewhere; I10 Essential (primary) hypertension; Z93.0 Tracheostomy status; Z93.1 Gastrostomy status; Z86.61 Personal history of infections of the central nervous system
CPT/HCPCS: 36415; 70450-TC; 71045; 76376; 76937; 80048; 80053; 81000; 82542; 82607; 82728; 82746; 82962; 83540; 83550; 83605; 83735; 84484; 85007; 85025; 85027; 85610-TC; 85730-TC; 87040; 87070-TC; 87081; 87086; 87205-TC; 93005; 94640; 94760; 95816; 96374; 99291; G0378; J0692; J1644; J1940; J1953; J2060; J2543; J2916; J7060; J7608